=== PATIENT | female | born 1965 | race Caucasian/White ===

== ENCOUNTER 2020-05-28 16:23 | Emergency (ER) | payer OTHER, SELFPAY ==
[2020-05-28 16:38] LABS: Apearance,Urine Clear (Clear); Color,Urine Orange (Yellow)
[2020-05-28 16:39] LABS: Specific Gravity, Urine >= 1.030 (1.005-1.030)
[2020-05-28 16:41] LABS: Glucose,Urine (UA) 1+ (Negative); Ketones,Urine Negative (Negative); Protein,Urine 2+ (Negative)
[2020-05-28 16:42] LABS: Bilirubin,Urine Negative (Negative); Blood, Urine 2+ (Negative); UTC Leukocyte Esterase,Urine 3+ (Negative); Urobilinogen,Urine 1 EU/dl (0.2)
[2020-05-28 16:43] LABS: UTC Nitrate,Urine Positive (Negative)
[2020-05-28 16:45] VITALS: BP 147/97; PULSE 96; RESP 14; TEMP 36.8; O2SAT 97; BMI 18.6
--- NOTE | 2020-05-28 17:01 | HMH.EDUTC ---
[facility] [place] Clinical Impression: UTI (urinary tract infection) Qualifiers: Urinary tract infection type: site unspecified Hematuria presence: with hematuria Qualified Code(s): N39.0 - Urinary tract infection, site not specified Disposition: Home, Self-Care Condition on Discharge: Good Instructions: Urinary Tract Infection, DI for Urinary Tract Infection (UTI) Additional Instructions: Drink plenty of fluids. Take tylenol or ibuprofen for pain or fever. Take the medications as directed. Follow up with your regular doctor. GO TO THE ER FOR ANY WORSENING SYMPTOMS The pyridium will make your urine turn orange, this is an expected side effect. It will stain your clothes if it comes into contact with them. Prescriptions: Ondansetron [Zofran 4mg ODT] 4 mg PO Q8HP PRN #10 tab.rapdis PRN Reason: Nausea [facility] Status: [facility] Sulfamethoxazole/Trimethoprim [Bactrim DS tablet] 1 each PO BID 7 Days #14 tab Transmission Status: Received by [facility] Phenazopyridine HCl [Pyridium 200mg Tablet] 200 pow PO TID #6 tab Transmission Status: [facility] Referrals: Iris Guerra [Primary Care Provider] - Time of Disposition: 17:03 Medical Decision Making - Medical Records Medical records reviewed: No: I reviewed the patient's medical records. - Kenny Inquiry Pt receiving controlled substance: No Vital Signs: 05/28/20 16:45 05/28/20 17:07 Temperature 98.3 F 98.3 F Temperature Source Oral Pulse Rate 96 H Pulse Rate [Right Brachial] 96 H Respiratory Rate 14 14 Blood Pressure 147/97 H Blood Pressure [Right Arm] 147/97 H Blood Pressure Mean [Right Arm] 113 Blood Pressure Source [Right Arm] Automatic Cuff Blood Pressure Position [Right Arm] Sitting 02 Sat by Pulse Oximetry 97 Oxygen Delivery Method Room Air - Lab Data Lab results reviewed: Yes: I reviewed the patient's lab results. Lab Results 05/28/20 16:37: Urine Color [place], Urine Appearance Clear, Urine pH 5.0, Ur Specific [place] >= 1.030, Urine Protein 2+, Urine Glucose (UA) 1+, Urine Ketones Negative, Urine Blood 2+, Urine Nitrate Positive A, Urine Bilirubin Negative, Urine Urobilinogen 1, Ur Leukocyte Esterase 3+ A [facility] [place] - General Stated complaint: Poss UTI Time Seen by Provider: 05/28/20 17:01 Mode of Arrival: Ambulatory Source of Information: Patient Limitations: No Limitations Description of Symptoms (Recalled from Triage Doc. by RN): PATIENT C/O BURNING WITH URINATION, URINARY FREQUENCY, AND LOWER BACK PAIN SINCE TUESDAY HEENT Symptoms (Recalled from RN notes): No Resp Symptoms (Recalled from RN notes): No Skin Symptoms (Recalled from RN notes): No MS Symptoms (Recalled from RN notes): No Functional Status (Recalled from RN notes): WNL - History of Present Illness Provider Complaint: She c/o low back pain and urinary frequency for the past 3 days. - Related Data Home Medications Medication Instructions Recorded Confirmed Atorvastatin Calcium [Atorvastatin 10 mg PO HS 08/13/19 05/28/20 10mg Tab] Aspirin [Aspirin 81mg chewable 81 mg PO DAILY 05/28/20 05/28/20 tab] Previous Rx's Medication Instructions Recorded Ondansetron [Zofran 4mg ODT] 4 mg PO Q8HP PRN #10 tab.rapdis 05/28/20 Phenazopyridine HCl [Pyridium 200 pow PO TID #6 tab 05/28/20 200mg Tablet] Sulfamethoxazole/Trimethoprim 1 each PO BID 7 Days #14 tab 05/28/20 [Bactrim DS tablet] Allergies Allergy/AdvReac Type Severity Reaction Status Date / Time Penicillins Allergy Verified 05/28/20 16:49 - Worker's Comp Is this a Worker's Comp case?: No [facility] History - Hepatitis A Screen Drug use history?: No High risk sexual behaviors?: No History of sexually transmitted infection?: No Currently employed?: No Childcare worker?: No Do you have indoor plumbing?: Yes Do you have electricity?: Yes Attestation statement:: This patient huerta
[2020-05-28 17:07] VITALS: BP 147/97; PULSE 96; RESP 14; TEMP 36.8; O2SAT 97
== END 2020-05-28 17:14 | disposition home or self-care (01) ==
PROVIDERS: Emergency Provider Nurse Practitioner Family; PCP Physician Assistant
DX: N30.00 Acute cystitis without hematuria (principal); I10 Essential (primary) hypertension; E78.5 Hyperlipidemia, unspecified; F17.210 Nicotine dependence, cigarettes, uncomplicated; Z88.0 Allergy status to penicillin
CPT/HCPCS: 81003; 99201

== ENCOUNTER 2020-09-21 11:25 | Emergency (ER) | payer OTHER, SELFPAY ==
[2020-09-21 11:30] VITALS: BP 148/93; PULSE 75; RESP 21; TEMP 36.7; O2SAT 98; BMI 20.1
--- NOTE | 2020-09-21 11:49 | HMH.EDUTC ---
[facility] [place] Disposition Clinical Impression: Sinusitis Qualifiers: Sinusitis location: unspecified location Chronicity: unspecified Qualified Code(s): J32.9 - Chronic sinusitis, unspecified Acute bronchitis Qualifiers: Bronchitis organism: unspecified organism Qualified Code(s): J20.9 - Acute bronchitis, unspecified Disposition: Home, Self-Care Condition on Discharge: Good Instructions: Sinusitis, Acute Bronchitis, DI for Sinusitis, Methylprednisolone, Azithromycin Additional Instructions: ? Start antibiotic today. Be sure to complete entire prescription even if feeling better ? Monitor temp. Tylenol every 4 hours as needed and / or ibuprofen every 6 hours as needed ( As long as your primary care physician has told you that it ok to take both. For fever/aches/pains ER if no less than 101 despite Tylenol or Motrin ? Humidifier/vaporizer or hot steamy shower ? Inhaler every 4-6 hours as needed like we discussed. If unsure how to use it, ask pharmacist to demonstrate how. Should help open airways and improve cough, wheezing, and shortness of breath ? Mucinex during the day for your cough and cough suppressant only at night. Be sure to drink lots of water. Insurance may not cover a prescriptions for mucinex. Might be cheaper to get 400mg tablets and take 2 tablet in the morning, mid-day and evening with lots of water. Start steroid today. Helps with inflammation therefore, cough and wheezing. Follow directions on the package. Reviewed side effects. Patient reports taking them before. Follow up IMMEDIATELY for new or worsening of symptoms OR no noticeable improvement over the next 48-72 hours. 911 immediately for any life threatening symptoms such as chest pain or difficulty breathing Prescriptions: methylPREDNISolone [Medrol 4mg tab] 4 mg PO DIRECTED #21 tab [facility]: [facility] Azithromycin [Z-Duglas 250mg Tab] 250 mg PO DIRECTED #6 tab Transmission Status: Pending to [facility] Referrals: Iris Guerra [Primary Care Provider] - As needed Time of Disposition: 12:00 Medical Decision Making - Kenny Inquiry Pt receiving controlled substance: No Kenny was queried for this patient: No Vital Signs: 09/21/20 11:30 Temperature 98.0 F Temperature Source Oral Pulse Rate [Right Brachial] 75 Respiratory Rate 21 Blood Pressure [Left Arm] 148/93 H Blood Pressure Mean [Left Arm] 111 Blood Pressure Source [Left Arm] Automatic Cuff Blood Pressure Position [Left Arm] Sitting 02 Sat by Pulse Oximetry 98 Oxygen Delivery Method Room Air Orders (Tests/Meds): ORDERS Category Date Time Status Covid-19 Nasal PCR ([facility]) Routine Lab 09/21/20 11:42 Ordered Medical Decision Narrative: Patient states that she has taken azithromycin and Medrol before without complications or reactions [facility] [place] HPI - General Stated complaint: POSSIBLE BRONCHITIS Time Seen by Provider: 09/21/20 11:50 Mode of Arrival: Wheelchair Source of Information: Patient Limitations: No Limitations Description of Symptoms (Recalled from Triage Doc. by RN): PATIENT C/O DRY COUGH, BODY ACHES, AND CHILLS SINCE YESTERDAY. REPORTS SHE WAS RECENTLY EXPOSED TO COVID HEENT Symptoms (Recalled from RN notes): No Resp Symptoms (Recalled from RN notes): No Skin Symptoms (Recalled from RN notes): No MS Symptoms (Recalled from RN notes): No Functional Status (Recalled from RN notes): WNL - History of Present Illness Provider Complaint: Patient states that she has been having sinus issues on and off for over a week and was around her brother last week that tested positive for COVID States that for the the last couple of days she is still having sinus drainage and feels like it is moving into her chest States that she is a smoker and gets bronchitis frequently States that she has had dry cough, body aches and headache - Related Data Home Medications Medication Instructions Recorded Confirmed Atorvastatin Calcium [Atorvas
[2020-09-21 12:04] VITALS: BP 148/93; PULSE 75; RESP 21; TEMP 36.7; O2SAT 98
== END 2020-09-21 12:08 | disposition home or self-care (01) ==
PROVIDERS: Emergency Provider Nurse Practitioner; PCP Physician Assistant
DX: Z20.822 Contact with and (suspected) exposure to COVID-19 (principal); J20.9 Acute bronchitis, unspecified; J32.9 Chronic sinusitis, unspecified; F17.210 Nicotine dependence, cigarettes, uncomplicated
CPT/HCPCS: 99202; G0463; U0003

== ENCOUNTER 2020-11-29 17:12 | Emergency (ER) | payer OTHER, SELFPAY ==
[2020-11-29 17:15] VITALS: BP 128/91; PULSE 84; RESP 17; TEMP 36.9; O2SAT 98; BMI 20.1
--- NOTE | 2020-11-29 18:12 | HMH.EDUTC ---
[facility] [place] Disposition Clinical Impression: Strep throat Disposition: Home, Self-Care Condition on Discharge: Good Instructions: Strep Throat, DI for Strep Throat, Azithromycin Additional Instructions: *Monitor Temp, Over the counter Motrin or Tylenol as directed/as needed Tylenol every 4 hours and Motrin every 6 hours (as long as your family doctor has told you that you can take it) for fever or pain. and straight to ER if unable to lower temp less than 101.0 after medication given *Warm salt water gargles may help to soothe the throat *Throat Lozenges *Warm fluids like tea with honey may help to soothe the throat *Sleep elevated *Humidifier/Vaporizer *If you did not take Penicillin shot or was unable to, start taking antibiotic immediately and make sure that you take it for the FULL length of time although you should start to feel better in 24-48 hours *change toothbrush and toothpaste 24-48 hours after starting to take antibiotics so you do not reinfect yourself Monitor Temp. Tylenol and/or Ibuprofen as needed. ER if fever is no less than 101 despite alternating Tylenol and Ibuprofen * Encourage fluids, water, Gatorade, powerade, pedialyte if /toddler/or child *Cold fluids, popsicles and ice cream may feel good on his throat Follow up IMMEDIATELY for new or worsening symptoms or no Noticeable improvement over the next 48-72 hours. 911 for difficulty breathing or swallowing Prescriptions: Azithromycin [Z-Duglas 250mg Tab] 250 mg PO DIRECTED #6 tab Transmission Status: Pending to [facility] Referrals: Iris Guerra [Primary Care Provider] - As needed Time of Disposition: 18:15 Medical Decision Making - Kenny Inquiry Pt receiving controlled substance: No Kenny was queried for this patient: No Vital Signs: 11/29/20 17:15 Temperature 98.4 F Temperature Source Oral Pulse Rate [Right Brachial] 84 Respiratory Rate 17 Blood Pressure [Right Arm] 128/91 H Blood Pressure Mean [Right Arm] 103 Blood Pressure Source [Right Arm] Automatic Cuff Blood Pressure Position [Right Arm] Sitting 02 Sat by Pulse Oximetry 98 Oxygen Delivery Method Room Air - Lab Data Lab results reviewed: Yes: I reviewed the patient's lab results. Medical Decision Narrative: Patient states that she has taken Azithromycin before without complications or reactions [facility] [place] HPI - General Stated complaint: L ear pain pain when swallowing Time Seen by Provider: 11/29/20 17:30 Mode of Arrival: Ambulatory Source of Information: Patient Limitations: No Limitations Description of Symptoms (Recalled from Triage Doc. by RN): PATIENT C/O LEFT EAR AND NECK PAIN AND THROAT PAIN WHEN SWALLOWING X 2 DAYS HEENT Symptoms (Recalled from RN notes): Yes Resp Symptoms (Recalled from RN notes): No Skin Symptoms (Recalled from RN notes): No MS Symptoms (Recalled from RN notes): No Functional Status (Recalled from RN notes): WNL - History of Present Illness Provider Complaint: Patient states that she has been having pain in her left ear for several days and has pain extending down from ear into neck and throat States that her throat feels scratchy and hurts when she swallows State that today she was still having sore throat so she came in to get checked - Related Data Home Medications Medication Instructions Recorded Confirmed Atorvastatin Calcium [Atorvastatin 10 mg PO HS 08/13/19 11/29/20 10mg Tab] Aspirin [Aspirin 81mg chewable 81 mg PO DAILY 05/28/20 11/29/20 tab] Montelukast Sodium [Singulair 10mg 10 mg PO PM 09/21/20 11/29/20 tablet] Omeprazole [Omeprazole 20mg 20 mg PO DAILY 09/21/20 11/29/20 Capsule] Previous Rx's Medication Instructions Recorded Azithromycin [Z-Duglas 250mg Tab] 250 mg PO DIRECTED #6 tab 11/29/20 Allergies Allergy/AdvReac Type Severity Reaction Status Date / Time Penicillins Allergy Verified 05/28/20 16:49 - Worker's Comp Is this a Worker's Comp case?: No
[2020-11-29 18:15] VITALS: BP 128/91; PULSE 84; RESP 17; TEMP 36.9; O2SAT 98
[2020-11-29 18:29] LABS: UTC Strep Screen (Rapid) Positive (Negative)
== END 2020-11-29 18:24 | disposition home or self-care (01) ==
PROVIDERS: Emergency Provider Nurse Practitioner; PCP Physician Assistant
DX: J02.0 Streptococcal pharyngitis (principal); F17.210 Nicotine dependence, cigarettes, uncomplicated
CPT/HCPCS: 87880; 99202; G0463

== ENCOUNTER 2021-06-26 10:33 | Emergency (ER) | payer OTHER, SELFPAY ==
[2021-06-26 11:40] VITALS: BP 142/99; PULSE 91; RESP 20; TEMP 36.9; O2SAT 97; BMI 18.6
--- NOTE | 2021-06-26 12:37 | HMH.EDUTC ---
[facility] [place] Impression: Acute bronchitis Qualifiers: Bronchitis organism: unspecified organism Qualified Code(s): J20.9 - Acute bronchitis, unspecified Disposition: Home, Self-Care Condition on Discharge: Good Instructions: Acute Bronchitis, DI for Acute Bronchitis Additional Instructions: Drink plenty of fluids. Take tylenol or ibuprofen for pain or fever. Take the medications as directed. Follow up with your regular doctor. GO TO THE ER FOR ANY WORSENING SYMPTOMS Quarantine until you know the results of your covid-19 test. If it is positive, the health department should call you and give you further instructions about your length of Quarantine and other things. Notify your school or workplace of your results and follow their instructions regarding return to work/school. The cough medication (promethazine dm) will make you drowsy, so don't drive or operate heavy machinery after taking it. Prescriptions: Promethazine/Dextromethorphan [Promethazine-Dm Syrup] 5 ml PO Q6HP PRN #240 ml PRN Reason: Cough Transmission Status: Received by [id number] methylPREDNISolone [Medrol] 4 mg PO DIRECTED 6 Days #21 packet Transmission Status: Received by [id number] guaiFENesin [Mucinex 600mg tablet] 1 - 2 tab PO BIDP PRN #30 tab PRN Reason: Congestion Transmission Status: Received by [id number] Azithromycin [Z-Duglas 250mg Tab*] 250 mg PO UD DOSE PK #6 tab Transmission Status: Received by [id number] Referrals: Shaquille Russell [Primary Care Provider] - Time of Disposition: 12:41 Medical Decision Making - Medical Records Medical records reviewed: No: I reviewed the patient's medical records. - Kenny Inquiry Pt receiving controlled substance: No Vital Signs: 06/26/21 11:40 06/26/21 12:44 Temperature 98.4 F 98.4 F Temperature Source Oral Pulse Rate 91 H Pulse Rate [Right Brachial] 91 H Respiratory Rate 20 20 Blood Pressure 142/99 H Blood Pressure [Right Arm] 142/99 H Blood Pressure Mean [Right Arm] 113 Blood Pressure Source [Right Arm] Automatic Cuff Blood Pressure Position [Right Arm] Sitting 02 Sat by Pulse Oximetry 97 Oxygen Delivery Method Room Air - Lab Data Lab results reviewed: Yes: I reviewed the patient's lab results. Orders (Tests/Meds): ORDERS Category Date Time Status Covid-19 Nasal PCR ([facility]) Routine Lab 06/26/21 12:35 Received [facility] [place] - General Stated complaint: bronchitis Time Seen by Provider: 06/26/21 11:45 Mode of Arrival: Ambulatory Source of Information: Patient Limitations: No Limitations Description of Symptoms (Recalled from Triage Doc. by RN): PATIENT C/O COUGH, CHEST CONGESTION, CHILLS AND BODY ACHES SINCE TUESDAY HEENT Symptoms (Recalled from RN notes): Yes Resp Symptoms (Recalled from RN notes): Yes Skin Symptoms (Recalled from RN notes): No MS Symptoms (Recalled from RN notes): Yes Functional Status (Recalled from RN notes): WNL - History of Present Illness Provider Complaint: She has had a cough, chest congestion, body aches and fever for the past 2 days. - Related Data Home Medications Medication Instructions Recorded Confirmed Atorvastatin Calcium [Atorvastatin 10 mg PO HS 08/13/19 06/26/21 10mg Tab] Previous Rx's Medication Instructions Recorded Azithromycin [Z-Duglas 250mg Tab*] 250 mg PO UD DOSE PK #6 tab 06/26/21 Promethazine/Dextromethorphan 5 ml PO Q6HP PRN #240 ml 06/26/21 [Promethazine-Dm Syrup] guaiFENesin [Mucinex 600mg tablet] 1 - 2 tab PO BIDP PRN #30 tab 06/26/21 methylPREDNISolone [Medrol] 4 mg PO DIRECTED 6 Days #21 06/26/21 packet Allergies Allergy/AdvReac Type Severity Reaction Status Date / Time Penicillins Allergy Verified 05/28/20 16:49 - Worker's Comp Is this a Worker's Comp case?: No [facility] History - Hepatitis A Screen Drug use history?: No High risk sexual behaviors?: No History of sexually transmitted infection?: N
[2021-06-26 12:44] VITALS: BP 142/99; PULSE 91; RESP 20; TEMP 36.9; O2SAT 97
== END 2021-06-26 12:51 | disposition home or self-care (01) ==
PROVIDERS: Emergency Provider Nurse Practitioner Family; PCP Family Medicine
DX: J20.9 Acute bronchitis, unspecified (principal); F17.210 Nicotine dependence, cigarettes, uncomplicated
CPT/HCPCS: 99202; C9803; G0463; U0003; U0005

== ENCOUNTER 2021-11-07 11:38 | Emergency (ER) | payer OTHER, SELFPAY ==
[2021-11-07 12:54] VITALS: BP 139/86; PULSE 83; RESP 18; TEMP 36.6; O2SAT 98; BMI 18.6
--- NOTE | 2021-11-07 12:55 | HMH.EDUTC ---
[facility] [place]: Sinusitis Qualifiers: Sinusitis location: unspecified location Chronicity: acute Recurrence: non-recurrent Qualified Code(s): J01.90 - Acute sinusitis, unspecified Acute bronchitis Qualifiers: Bronchitis organism: unspecified organism Qualified Code(s): J20.9 - Acute bronchitis, unspecified Disposition: Home, Self-Care Condition on Discharge: Good Instructions: DI for Sinusitis, DI for Acute Bronchitis Additional Instructions: Drink plenty of fluids. Take tylenol or ibuprofen for pain or fever. Take the medications as directed. Follow up with your regular doctor. GO TO THE ER FOR ANY WORSENING SYMPTOMS The cough medication (promethazine dm) will make you drowsy, so don't drive or operate heavy machinery after taking it. Prescriptions: Promethazine/Dextromethorphan [Promethazine-Dm Syrup] 5 ml PO Q6HP PRN #240 ml PRN Reason: Cough Transmission Status: [id number] methylPREDNISolone [Medrol] 4 mg PO DIRECTED 6 Days #21 packet Transmission Status: Received by [id number] guaiFENesin [Mucinex 600mg tablet] 1 - 2 tab PO BIDP PRN #30 tab PRN Reason: Congestion Transmission Status: Received by [id number] Azithromycin [Z-Duglas 250mg Tab*] 250 mg PO UD DOSE PK #6 tab Transmission Status: Received by [id number] Referrals: Ethel Vazquez APRN [Primary Care Provider] - Forms: Work/School Release Time of Disposition: 13:19 Medical Decision Making - Medical Records Medical records reviewed: No: I reviewed the patient's medical records. - Kenny Inquiry Pt receiving controlled substance: No Vital Signs: 11/07/21 12:54 11/07/21 13:26 Temperature 98 F 98 F Temperature Source Oral Pulse Rate 83 Pulse Rate [Left] 83 Respiratory Rate 18 18 Blood Pressure 139/86 Blood Pressure [Right Arm] 139/86 Blood Pressure Mean [Right Arm] 103 02 Sat by Pulse Oximetry 98 - Lab Data Lab results reviewed: Yes: I reviewed the patient's lab results. [facility] [place] - General Stated complaint: cough, congestion, ACSTRO, chills Time Seen by Provider: 11/07/21 12:55 - History of Present Illness Provider Complaint: She states that for the past 2 days she has had worsening sinus congestion and sore throat. She denies fever/chills. - Related Data Home Medications Medication Instructions Recorded Confirmed Atorvastatin Calcium [Atorvastatin 10 mg PO HS 08/13/19 06/26/21 10mg Tab] Previous Rx's Medication Instructions Recorded Azithromycin [Z-Duglas 250mg Tab*] 250 mg PO UD DOSE PK #6 tab 06/26/21 Promethazine/Dextromethorphan 5 ml PO Q6HP PRN #240 ml 06/26/21 [Promethazine-Dm Syrup] guaiFENesin [Mucinex 600mg tablet] 1 - 2 tab PO BIDP PRN #30 tab 06/26/21 methylPREDNISolone [Medrol] 4 mg PO DIRECTED 6 Days #21 06/26/21 packet Azithromycin [Z-Duglas 250mg Tab*] 250 mg PO UD DOSE PK #6 tab 11/07/21 Promethazine/Dextromethorphan 5 ml PO Q6HP PRN #240 ml 11/07/21 [Promethazine-Dm Syrup] guaiFENesin [Mucinex 600mg tablet] 1 - 2 tab PO BIDP PRN #30 tab 11/07/21 methylPREDNISolone [Medrol] 4 mg PO DIRECTED 6 Days #21 11/07/21 packet Allergies Allergy/AdvReac Type Severity Reaction Status Date / Time Penicillins Allergy Verified 05/28/20 16:49 [facility] History - Hepatitis A Screen Attestation statement:: This patient has been screened for Hepatitis A risk factors. I have reviewed the patient's past medical history: Yes - Social History Smoking Status: Current every day smoker Tobacco Type: cigarettes # Packs/Day (cigarettes): 1 Alcohol Intake: never Occupational Status: other ROS Obtained: Yes All systems reviewed & no additional complaints - Constitutional Constitutional: Reports as per HPI - Eyes Eyes: Denies eye discharge - ENT Ears, Nose, Mouth, and Throat: Reports as per HPI - Cardiovascular Cardiovascular: Denies chest pain - Respiratory Respiratory: Reports chest
[2021-11-07 13:26] VITALS: BP 139/86; PULSE 83; RESP 18; TEMP 36.6
== END 2021-11-07 13:26 | disposition home or self-care (01) ==
PROVIDERS: Emergency Provider Nurse Practitioner Family; PCP Nurse Practitioner Family
DX: J01.90 Acute sinusitis, unspecified (principal); J20.9 Acute bronchitis, unspecified; J02.9 Acute pharyngitis, unspecified; F17.210 Nicotine dependence, cigarettes, uncomplicated; Z79.52 Long term (current) use of systemic steroids; Z79.899 Other long term (current) drug therapy; Z88.0 Allergy status to penicillin
CPT/HCPCS: 99213; G0463

== ENCOUNTER 2022-01-24 13:25 | Emergency (ER) | payer OTHER, SELFPAY ==
[2022-01-24 13:35] VITALS: BP 141/92; PULSE 74; RESP 19; TEMP 36.8; O2SAT 98; BMI 17.7
--- NOTE | 2022-01-24 14:01 | HMH.EDUTC ---
[facility] [place] Disposition Clinical Impression: Sinusitis Qualifiers: Sinusitis location: unspecified location Chronicity: unspecified Qualified Code(s): J32.9 - Chronic sinusitis, unspecified Acute bronchitis Qualifiers: Bronchitis organism: unspecified organism Qualified Code(s): J20.9 - Acute bronchitis, unspecified Disposition: Home, Self-Care Condition on Discharge: Good Instructions: Sinusitis, DI for Sinusitis, DI for Acute Bronchitis Additional Instructions: ? Start antibiotic today. Be sure to complete entire prescription even if feeling better ? Monitor temp. Tylenol every 4 hours as needed and / or ibuprofen every 6 hours as needed ( As long as your primary care physician has told you that it ok to take both. For fever/aches/pains ER if no less than 101 despite Tylenol or Motrin ? Humidifier/vaporizer or hot steamy shower ? Inhaler every 4-6 hours as needed like we discussed. If unsure how to use it, ask pharmacist to demonstrate how. Should help open airways and improve cough, wheezing, and shortness of breath ? Mucinex during the day for your cough and cough suppressant only at night. Be sure to drink lots of water. Insurance may not cover a prescriptions for mucinex. Might be cheaper to get 400mg tablets and take 2 tablet in the morning, mid-day and evening with lots of water. *Promethazine DM cough syrup will cause drowsiness. Use only at night. No driving, operating machinery or caring for small children after taking it *Tessalon Perles will not cause drowsiness but use at bedtime to help stop cough so that you may get some rest. *Start steroid today. Helps with inflammation therefore, cough and wheezing. Follow directions on the package. Reviewed side effects. Patient reports taking them before. Follow up IMMEDIATELY for new or worsening of symptoms OR no noticeable improvement over the next 48-72 hours. 911 immediately for any life threatening symptoms such as chest pain or difficulty breathing Prescriptions: methylPREDNISolone [Medrol 4mg tab] 4 mg PO DIRECTED #21 tab Transmission Status: [id number] Promethazine/Dextromethorphan [Promethazine-Dm Syrup] 2.5 - 5 ml PO Q6H PRN #200 ml PRN Reason: Cough Transmission Status: [id number] Azithromycin [Z-Duglas 250mg Tab] 250 mg PO DIRECTED #6 tab Transmission Status: [id number] Referrals: Ethel Vazquez APRN [Primary Care Provider] - As needed Time of Disposition: 14:14 Medical Decision Making - Kenny Inquiry Pt receiving controlled substance: No Kenny was queried for this patient: No Vital Signs: 01/24/22 13:35 Temperature 98.2 F Temperature Source Oral Pulse Rate [Right Brachial] 74 Respiratory Rate 19 Blood Pressure [Right Arm] 141/92 H Blood Pressure Mean [Right Arm] 108 Blood Pressure Source [Right Arm] Automatic Cuff Blood Pressure Position [Right Arm] Sitting 02 Sat by Pulse Oximetry 98 Oxygen Delivery Method Room Air [facility] [place] HPI - General Stated complaint: congestion, sore throat, chills Time Seen by Provider: 01/24/22 14:01 Mode of Arrival: Ambulatory Source of Information: Patient Limitations: No Limitations Description of Symptoms (Recalled from Triage Doc. by RN): PATIENT C/O WET COUGH, SINUS PRESSURE AND DRAINAGE X 2 DAYS HEENT Symptoms (Recalled from RN notes): Yes Resp Symptoms (Recalled from RN notes): Yes Skin Symptoms (Recalled from RN notes): No MS Symptoms (Recalled from RN notes): No Functional Status (Recalled from RN notes): WNL - History of Present Illness Provider Complaint: Patient states she has been having sinus pain and pressure, drainage in the back of her throat, States that she feels like it is trying to move into her chest area and wanted to get it treated before it got too bad - Related Data Home Medications Medication Instructions Recorded Confirmed Atorvastatin Calcium [Atorvastatin 10 mg PO HS 08/13/19 01/24/22 10mg Tab] Previous
[2022-01-24 14:02] VITALS: BP 141/92; PULSE 74; RESP 19; TEMP 36.8; O2SAT 98
== END 2022-01-24 14:18 | disposition home or self-care (01) ==
PROVIDERS: Emergency Provider Nurse Practitioner; PCP Nurse Practitioner Family
DX: J32.9 Chronic sinusitis, unspecified (principal); J20.9 Acute bronchitis, unspecified; Z88.0 Allergy status to penicillin
CPT/HCPCS: 99212; G0463

== ENCOUNTER 2022-10-04 13:38 | Emergency (ER) | payer OTHER, SELFPAY ==
[2022-10-04 14:00] VITALS: BP 143/88; PULSE 85; RESP 20; TEMP 36.8; O2SAT 97; BMI 17.7
[2022-10-04 14:10] LABS: UTC Strep Screen (Rapid) Negative (Negative)
--- NOTE | 2022-10-04 14:11 | EXP.UTC ---
Discharge Plan Disposition Patient Disposition: Home, Self-Care Condition: Good Prescriptions Prescriptions: New azithromycin [Zithromax Z-Duglas] 250 mg tablet See Rx Instructions .ROUTE .COMPLEX 5 Days Qty: 6 0RF Rx Instructions: For 250 mg dose pack: take 500 mg today (day 1), then 250 mg for 4 days (days 2-5) fluticasone propionate [Flonase Allergy Relief] 50 mcg/actuation spray,suspension 1 spray intranasal DAILY Qty: 16 0RF Rx Instructions: administer into each nostril daily No Action atorvastatin 10 MG tablet 10 mg PO HS promethazine-DM 120 ML syrup 2.5 - 5 ml PO Q6H PRN (Reason: Cough) Qty: 200 0RF azithromycin 250 MG tablet 250 mg PO DIRECTED Qty: 6 0RF Rx Instructions: Take two (2) tablets on day #1, then one (1) tablet day #2 thru #5 methylprednisolone 4 MG tablet 4 mg PO DIRECTED Qty: 21 0RF Rx Instructions: Take as directed on package instructions Referrals Follow up/Referrals: Ethel Vazquez APRN [Primary Care Provider] - See instructions Activity Restrictions/Add. Instructions Additional Instructions/Restrictions: *Monitor Temp, Over the counter Motrin or Tylenol as directed/as needed Tylenol every 4 hours and Motrin every 6 hours (as long as your family doctor has told you that you can take it) for fever or pain. and straight to ER if unable to lower temp less than 101.0 after medication given *Warm salt water gargles may help to soothe the throat *Throat Lozenges? *Warm fluids like tea with honey may help to soothe the throat? *Sleep elevated *Humidifier/Vaporizer Take medication as prescribed Your throat swab was sent for culture. Those results are typically sent to your primary care. Be sure to follow up in 2-3 days with your family doctor/primary care physician if no improvement so they can review those result and treat if necessary. If you don?t have a primary care doctor, I recommend you get one but in the mean time, you will have to return to a walk in clinic Follow up IMMEDIATELY for new or worsening symptoms or no Noticeable improvement over the next 48-72 hours. 911 for difficulty breathing or swallowing Clinical Impressions Clinical Impression: Otitis media Qualifiers: Otitis media type: unspecified Laterality: left Qualified Code(s): H66.92 - Otitis media, unspecified, left ear Stand Alone Forms Stand Alone Forms: Work/School Release Instructions Patient Instructions: Sore Throat, Middle Ear Infection Discharge ED Provider: Shelia Acosta [facility] [place] HPI General Stated complaint: Left side of neck up to her ear Time Seen by Provider: 10/04/22 14:11 History of Present Illness Provider Complaint: Patient states that she has been having pain in her left ear and left side of throat that has continued to get worse States that she feels like she may have a swollen lymph node on the left side of neck States that she was still hurting so she came in to get it checked Related Data Home Medications Medication Instructions Recorded Confirmed atorvastatin 10 mg tablet 10 mg PO HS Cholesterol 08/13/19 01/24/22 albuterol sulfate 90 mcg/actuation 1 inh inhalation NEEDED PRN . 10/04/22 10/04/22 aerosol inhaler montelukast 10 mg tablet 10 mg PO DAILY . 10/04/22 10/04/22 Previous Rx's Medication Instructions Recorded azithromycin 250 mg tablet See Rx Instructions PO .COMPLEX 5 10/04/22 (Zithromax Z-Duglas) days #6 tabs fluticasone propionate 50 1 spray intranasal DAILY #16 grams 10/04/22 mcg/actuation nasal spray,suspension (Flonase Allergy Relief) Allergies Allergy/AdvReac Type Severity Reaction Status Date / Time Penicillins Allergy Verified 10/04/22 14:14 [facility] Disclaimer: The information contained in this section may have been updated after the patient was seen, as this information can be updated by other users. Social History Smoking Status: Current every day smoke
[2022-10-04 14:31] VITALS: BP 143/88; PULSE 85; RESP 20; TEMP 36.8; O2SAT 97
== END 2022-10-04 14:29 | disposition home or self-care (01) ==
PROVIDERS: Emergency Provider Nurse Practitioner; PCP Nurse Practitioner Family
DX: H66.92 Otitis media, unspecified, left ear (principal); R07.0 Pain in throat; F17.210 Nicotine dependence, cigarettes, uncomplicated
CPT/HCPCS: 87880; 99212; 99214; G0463

== ENCOUNTER 2022-12-27 10:14 | Emergency (ER) | payer OTHER, SELFPAY ==
--- NOTE | 2022-12-27 11:08 | EXP.UTC ---
Discharge Plan Disposition Patient Disposition: Home, Self-Care Condition: Good Prescriptions Prescriptions: New azithromycin [Zithromax] 250 mg tablet 250 mg PO UD DOSE PK Qty: 6 0RF Rx Instructions: Take two (2) tablets today, then one (1) tablet days #2 thru #5 benzonatate [benzonatate] 100 mg capsule 100 mg PO TIDP PRN (Reason: Cough) Qty: 30 0RF methylprednisolone 4 mg Tablets,Dose Pack 4 mg PO DIRECTED Qty: 21 0RF No Action atorvastatin 10 MG tablet 10 mg PO HS Referrals Follow up/Referrals: Ethel Vazquez APRN [Primary Care Provider] - See instructions Activity Restrictions/Add. Instructions Additional Instructions/Restrictions: Drink plenty of fluids. Take tylenol for pain or fever. Take the medications as directed. Follow up with your regular doctor. GO TO THE ER FOR ANY WORSENING SYMPTOMS Clinical Impressions Clinical Impression: Sinusitis Instructions Patient Instructions: Sinusitis, DI for Sinusitis Discharge ED Provider: Memo Shay [facility] General Stated complaint: CASTRO, congestion Time Seen by Provider: 12/27/22 11:08 History of Present Illness Provider Complaint: She states that for the past 3 days she has had sinus congestion, left ear pain and malaise. Related Data Home Medications Medication Instructions Recorded Confirmed atorvastatin 10 mg tablet 10 mg PO HS Cholesterol 08/13/19 12/27/22 Previous Rx's Medication Instructions Recorded azithromycin 250 mg tablet 250 mg PO UD DOSE PK #6 tabs 12/27/22 (Zithromax) benzonatate 100 mg capsule 100 mg PO TIDP PRN Cough #30 caps 12/27/22 methylprednisolone 4 mg tablets in 4 mg PO DIRECTED #21 tabs 12/27/22 a dose pack Allergies Allergy/AdvReac Type Severity Reaction Status Date / Time Penicillins Allergy Verified 12/27/22 11:27 [facility] Disclaimer: The information contained in this section may have been updated after the patient was seen, as this information can be updated by other users. Medical History Anxiety Depression GERD (gastroesophageal reflux disease) Urinary tract infection Surgical History H/O tubal ligation History of cholecystectomy Social History Smoking Status: Current every day smoker tobacco type: cigarettes packs per day: 1 alcohol intake: never current occupational status: other Travel in the last 8 weeks: None ROS Obtained: Yes All systems reviewed & no additional complaints except as documented Constitutional Constitutional: Reports poor appetite Eyes Eyes: Reports system reviewed and no additional complaints, except as documented ENT Ears, Nose, Mouth, and Throat: Reports as per HPI Cardiovascular Cardiovascular: Reports system reviewed and no additional complaints, except as documented and Denies chest pain Respiratory Respiratory: Denies shortness of breath, Denies chest congestion, Reports cough, Denies stridor and Denies wheezing Gastrointestinal Gastrointestingal: Reports system reviewed and no additional complaints, except as documented; Denies abdominal pain, diarrhea or vomiting Musculoskeletal Musculoskeletal: Reports system reviewed and no additional complaints, except as documented and Denies arthralgias Integumentary/Breasts Skin/Breast: Reports system reviewed and no additional complaints, except as documented and Denies rash Neurologic Neurologic: Denies paresthesias Allergic/Immunologic Allergic/Immunologic: Denies wheezing Physical Exam General General appearance: alert and in no apparent distress Head Head exam: atraumatic, normocephalic and normal inspection Eye Eye exam: Present normal appearance, PERRL and EOMI ENT ENT exam: Present normal exam, normal oropharynx, mucous membranes moist, TM's normal bilaterally and normal external ear exam Neck
[2022-12-27 11:24] VITALS: BP 152/100; PULSE 73; RESP 16; TEMP 36.5; O2SAT 98; BMI 18.3
[2022-12-27 11:41] VITALS: BP 146/94; PULSE 73; RESP 18; TEMP 36.5; O2SAT 98
== END 2022-12-27 11:45 | disposition home or self-care (01) ==
PROVIDERS: Emergency Provider Nurse Practitioner Family; PCP Nurse Practitioner Family
DX: J01.90 Acute sinusitis, unspecified (principal); F17.210 Nicotine dependence, cigarettes, uncomplicated; K21.9 Gastro-esophageal reflux disease without esophagitis; F41.9 Anxiety disorder, unspecified; F32.9 Major depressive disorder, single episode, unspecified
CPT/HCPCS: 99212; 99214; G0463

== ENCOUNTER 2023-07-29 16:50 | Emergency (ER) | payer OTHER, SELFPAY ==
--- NOTE | 2023-07-29 17:59 | EXP.UTC ---
Discharge Plan Disposition Patient Disposition: Home, Self-Care Condition: Good Prescriptions Prescriptions: New azithromycin [Zithromax] 250 mg tablet 250 mg PO UD DOSE PK Qty: 6 0RF Rx Instructions: Take two (2) tablets today, then one (1) tablet days #2 thru #5 benzonatate [benzonatate] 100 mg capsule 100 mg PO TIDP PRN (Reason: Cough) Qty: 30 0RF methylprednisolone 4 mg Tablets,Dose Pack 4 mg PO DIRECTED 6 Days Qty: 21 0RF Rx Instructions: Take 1 pack as directed for 6 days No Action atorvastatin 10 MG tablet 10 mg PO HS Referrals Follow up/Referrals: Ethel Vazquez APRN [Primary Care Provider] - See instructions Activity Restrictions/Add. Instructions Additional Instructions/Restrictions: Drink plenty of fluids. Take tylenol or ibuprofen for pain or fever. Take the medications as directed. Follow up with your regular doctor. GO TO THE ER FOR ANY WORSENING SYMPTOMS Clinical Impressions Clinical Impression: Sinusitis Instructions Patient Instructions: Sinusitis, DI for Sinusitis Discharge ED Provider: Memo Shay [facility] General Stated complaint: sinus pressure, h/a Time Seen by Provider: 07/29/23 17:59 History of Present Illness Provider Complaint: She states that for the past 4 days she has had sinus congestion, sinus pressure, and ear pain. She denies any fever/chills. Related Data Home Medications Medication Instructions Recorded Confirmed atorvastatin 10 mg tablet 10 mg PO HS Cholesterol 08/13/19 07/29/23 Previous Rx's Medication Instructions Recorded azithromycin 250 mg tablet 250 mg PO UD DOSE PK #6 tabs 07/29/23 (Zithromax) benzonatate 100 mg capsule 100 mg PO TIDP PRN Cough #30 caps 07/29/23 methylprednisolone 4 mg tablets in 4 mg PO DIRECTED 6 days #21 tabs 07/29/23 a dose pack Allergies Allergy/AdvReac Type Severity Reaction Status Date / Time Penicillins Allergy Verified 12/27/22 11:27 [facility] Disclaimer: The information contained in this section may have been updated after the patient was seen, as this information can be updated by other users. Medical History Anxiety Depression GERD (gastroesophageal reflux disease) Urinary tract infection Surgical History H/O tubal ligation History of cholecystectomy Social History Smoking Status: Current every day smoker tobacco type: cigarettes packs per day: 1 alcohol intake: never current occupational status: other Travel in the last 8 weeks: None ROS Obtained: Yes All systems reviewed & no additional complaints except as documented Constitutional Constitutional: Reports poor appetite Eyes Eyes: Reports system reviewed and no additional complaints, except as documented ENT Ears, Nose, Mouth, and Throat: Reports as per HPI Cardiovascular Cardiovascular: Reports system reviewed and no additional complaints, except as documented and Denies chest pain Respiratory Respiratory: Denies shortness of breath, Denies chest congestion, Reports cough, Denies stridor and Denies wheezing Gastrointestinal Gastrointestingal: Reports system reviewed and no additional complaints, except as documented; Denies abdominal pain, diarrhea or vomiting Musculoskeletal Musculoskeletal: Reports system reviewed and no additional complaints, except as documented and Denies arthralgias Integumentary/Breasts Skin/Breast: Reports system reviewed and no additional complaints, except as documented and Denies rash Neurologic Neurologic: Denies paresthesias Allergic/Immunologic Allergic/Immunologic: Denies wheezing Physical Exam General General appearance: alert and in no apparent distress Eye Eye exam: Present normal appearance, PERRL and EOMI ENT ENT exam: Present mucous membranes moist and normal external ear exam Expanded ENT Exam External ear exam: Present normal external inspection TM/Canal exam: Bilateral TM: erythema and bulging Nose exam: Absent sinus tenderness Nasal speculum exam: Bilateral: normal Mouth exam: Present normal external inspection; Absent drooling Teeth exam: Present normal inspection Throat exam: Present tonsillar erythema and tonsillomegaly Neck Neck exam: Present normal inspection, full ROM and trachea midline; Absent tenderness, lymphadenopathy or thyromegaly Chest Chest inspection: Present normal inspection and symmetric chest wall rise; Absent tenderness or rash Respiratory Respiratory exam: Present normal lung sounds bilaterally; Absent respiratory distress, wheezes, stridor or accessory muscle use Cardiovascular Cardiovascular exam: Present regular rate, normal rhythm and normal heart sounds Abdominal Exam Abdominal exam: Present soft; Absent distention, tenderness, guarding, rebound or rigidity Extremities Exam Extremities exam: Present normal inspection, full ROM and normal capillary refill; Absent tenderness or calf tenderness Back Exam Back exam: Present normal inspection and full ROM; Absent tenderness Neurological Exam Neurological exam: Present alert and oriented X3 Psychiatric Psychiatric exam: Present normal affect and normal mood Skin Skin exam: Present warm, dry, intact and normal color Lymphatic Lymphatic Findings: no adenopathy Medical Decision Making Medical Records Medical records reviewed: No I reviewed the patient's medical records. Kenny Inquiry Pt receiving controlled substance: No
[2023-07-29 18:00] VITALS: BP 141/86; PULSE 75; RESP 20; TEMP 36.8; O2SAT 97; BMI 17.7
[2023-07-29 18:20] VITALS: BP 141/86; PULSE 75; RESP 20; TEMP 36.8; O2SAT 97
== END 2023-07-29 18:23 | disposition home or self-care (01) ==
PROVIDERS: Emergency Provider Nurse Practitioner Family; PCP Nurse Practitioner Family
DX: J01.90 Acute sinusitis, unspecified (principal); R51.9 Headache, unspecified; R09.81 Nasal congestion; H92.03 Otalgia, bilateral; F17.210 Nicotine dependence, cigarettes, uncomplicated
CPT/HCPCS: 99212; 99214; G0463

== ENCOUNTER 2023-09-19 10:27 | Emergency (ER) | payer OTHER, SELFPAY ==
[2023-09-19] VITALS (8 sets, daily range): BP systolic 127–165; BP diastolic 87–105; PULSE 68–86; RESP 14–19; TEMP 36.6–36.7; O2SAT 95–99; BMI 17.7
--- NOTE | 2023-09-19 10:29 | ECG_ITS ---
APPROVED REPORT Exam: Resting ECG HR:79 bpm ECG Measurements Heart Rate 79 AXES OK 128 P 68 QRSd 77 QRS 88 QT 356 T 71 QTc 391 Conclusion SINUS RHYTHM SEPTAL MYOCARDIAL INFARCTION , PROBABLY OLD [40+ ms Q WAVE IN V1/V2] ABNORMAL ECG UNCONFIRMED REPORT Electronically signed by : Arnaldo Owusu MD 09/20/2023 20:11:47
--- NOTE | 2023-09-19 10:45 | XR_ITS ---
FINAL REPORT TECHNIQUE: Chest PA & Lateral CLINICAL HISTORY: cough/congestion COMPARISON: None FINDINGS: 2 views of the chest were performed. The heart size is normal. The mediastinum is within normal limits. The lungs are hyperinflated. There is no airspace infiltrate. There are no pleural effusions. There is no pneumothorax. The bony thorax appears intact. IMPRESSION: Hyperinflated lungs without acute cardiopulmonary process. Reviewed, Interpreted and Dictated by Pete Thornton MD Transcribed by Rebecca Del Cid Authenticated and [facility]
[2023-09-19 10:52] LABS: Basophils # 0.1 K/mm3 (0-0.2); Basophils % 0.7 % (0.1-2.0); Eosinophils # 0.1 K/mm3 (0.0-0.4); Eosinophils % 1.2 % (0.1-12.0); Hematocrit 49.1 % (37.0-47.0); Hemoglobin 16.4 g/dL (12.2-16.2); Lymphocytes # 2.9 K/mm3 (0.7-4.5); Lymphocytes % 39.5 % (10-50); Mean Corpuscular HGB Conc 33.4 g/dL (31.8-35.4); Mean Corpuscular Hemoglobin 32.5 pg (27.0-31.2); Mean Corpuscular Volume 97.4 fl (81-99); Mean Platelet Volume 7.8 fl (7.4-10.4); Monocytes # 0.5 K/mm3 (0.1-1.0); Monocytes % 7.1 % (1.7-9.3); Neutrophils # 3.8 K/mm3 (1.8-7.8); Neutrophils % 51.4 % (37.0-80.0); Platelet Count 366 K/mm3 (142-424); Red Blood Count 5.04 M/mm3 (4.20-5.40); Red Cell Distribution Width 13.3 % (11.5-17.5); White Blood Count 7.4 K/mm3 (4.8-10.8)
--- NOTE | 2023-09-19 10:52 | PC.NURSE ---
Dr. Royal at [facility] for pt eval
--- NOTE | 2023-09-19 10:58 | ED_ITS ---
Discharge Plan Disposition Patient Disposition: Home, Self-Care Condition: Good Prescriptions Prescriptions: No Action azithromycin [Zithromax] 250 mg tablet 250 mg PO UD DOSE PK Qty: 6 0RF Rx Instructions: Take two (2) tablets today, then one (1) tablet days #2 thru #5 benzonatate [benzonatate] 100 mg capsule 100 mg PO TIDP PRN (Reason: Cough) Qty: 30 0RF methylprednisolone 4 mg Tablets,Dose Pack 4 mg PO DIRECTED 6 Days Qty: 21 0RF Rx Instructions: Take 1 pack as directed for 6 days atorvastatin 10 MG tablet 10 mg PO HS Referrals Follow up/Referrals: Provider,Referral, MD [Primary Care Provider] - See instructions Activity Restrictions/Add. Instructions Additional Instructions/Restrictions: You have been evaluated in the ED for your complaints. I provided you with information in regards to a new primary care provider to establish care. Please call to schedule appointment over the next week for reassessment. If you experience any new or worsening symptoms please return to ED for further evaluation. Clinical Impressions Clinical Impression: Chest pain, Shortness of breath, Hypertension Stand Alone Forms Stand Alone Forms: Work/School Release Instructions Patient Instructions: DI for Atypical Chest Pain, DI for Shortness of Breath Discharge ED Provider: Emeterio Royal General Adult HPI General Chief complaint: Shortness of Breath/Dyspnea Stated complaint: Chest Pain Time Seen by Provider: 09/19/23 10:51 Mode of Arrival: Ambulatory Source of Information: Patient Limitations: No Limitations Description of Symptoms (Recalled from ER Triage Doc. by RN): Patient reports high blood pressure, shortness of breath, cough and congestion. Patient denies chest pain. History of Present Illness HPI narrative: 58-year-old female with past medical history significant for anxiety, depression, GERD, HLD, presents today for evaluation concerning high blood pressure readings over the past 3 days. She states that on Tuesday she noted a blood pressure of 220/100. Tuesday 147/100. Tuesday 147/102. She has concerns about her diastolic numbers. Also states that she has been having congestion and a productive cough with green sputum over the past couple days. She also reports intermittent left-sided chest pain over the past 2 weeks and also states that she has noticed shortness of breath since Tuesday. Denies any fevers, chills, nausea, vomiting, abdominal pain, dysuria, hematuria or any other associated symptoms at this time. She also notes that she does not have a history of hypertension and is not on blood pressure medication. Related Data Home Medications Medication Instructions Recorded Confirmed atorvastatin 10 mg tablet 10 mg PO HS Cholesterol 08/13/19 07/29/23 Previous Rx's Medication Instructions Recorded azithromycin 250 mg tablet 250 mg PO UD DOSE PK #6 tabs 07/29/23 (Zithromax) benzonatate 100 mg capsule 100 mg PO TIDP PRN Cough #30 caps 07/29/23 methylprednisolone 4 mg tablets in 4 mg PO DIRECTED 6 days #21 tabs 07/29/23 a dose pack Allergies Allergy/AdvReac Type Severity Reaction Status Date / Time Penicillins Allergy Verified 12/27/22 11:27 [facility] Disclaimer: The information contained in this section may have been updated after the patient was seen, as this information can be updated by other users. Medical History Anxiety Depression GERD (gastroesophageal reflux disease) Urinary tract infection Surgical History H/O tubal ligation History of cholecystectomy Social History Smoking Status: Current every day smoker tobacco type: cigarettes packs per day: 1 alcohol intake: never current occupational status: other Travel in the last 8 weeks: None ROS Obtained: Yes All systems reviewed & no additional complaints except as documented Physical Exam General General appearance: alert and in no apparent distress Head Head exam: atraumatic and normocephalic Eye Eye exam: Present normal appearance, PERRL and EOMI ENT ENT exam: Present normal oropharynx and mucous membranes moist Neck Neck exam: Present full ROM; Absent meningismus Respiratory Respiratory exam: Absent respiratory distress, wheezes, stridor or accessory muscle use Cardiovascular Cardiovascular exam: Present normal rhythm Abdominal Exam Abdominal exam: Present soft; Absent distention, tenderness, guarding, rebound or rigidity Neurological Exam Neurological exam: Present alert, oriented X3 and CN II-XII intact; Absent motor sensory deficit Psychiatric Psychiatric exam: Present normal affect and normal mood Skin Skin exam: Present warm and dry Medical Decision Making Medical Records Medical records reviewed: Yes I reviewed the patient's medical records. Kenny Inquiry Pt receiving controlled substance: No Kenny was queried for this patient: No Vital Signs: 02/19/24 10:27 09/19/23 11:00 09/19/23 11:30 Temperature 98.0 F Temperature Source Oral Pulse Rate 77 75 Pulse Rate [Radial] 86 Respiratory Rate 18 17 18 Blood Pressure 153/100 H 142/87 H Blood Pressure [Right Arm] 165/105 H Blood Pressure Mean [Right Arm] 125 Blood Pressure Source [Right Arm] Automatic Cuff Blood Pressure Position [Right Arm] Sitting 02 Sat by Pulse Oximetry 99 98 97 Oxygen Delivery Method Room Air Room Air 09/19/23 12:00 09/19/23 12:30 09/19/23 13:00 Temperature Temperature Source Pulse Rate 76 70 Pulse Rate [Radial] Respiratory Rate 19 17 14 Blood Pressure 140/89 132/89 134/89 Blood Pressure [Right Arm] Blood Pressure Mean [Right Arm] Blood Pressure Source [Right Arm] Blood Pressure Position [Right Arm] 02 Sat by Pulse Oximetry 95 96 96 Oxygen Delivery Method Room Air Room Air 09/19/23 13:30 Temperature Temperature Source Pulse Rate 68 Pulse Rate [Radial] Respiratory Rate 19 Blood Pressure 127/91 H Blood Pressure [Right Arm] Blood Pressure Mean [Right Arm] Blood Pressure Source [Right Arm] Blood Pressure Position [Right Arm] 02 Sat by Pulse Oximetry 95 Oxygen Delivery Method Lab Data Lab Results 09/19/23 10:33: WBC 7.4, RBC 5.04, Hgb 16.4 H, Hct 49.1 H, MCV 97.4, MCH 32.5 H, MCHC 33.4, RDW 13.3, Plt Count 366, MPV 7.8, Neut % (Auto) 51.4, Lymph % (Auto) 39.5, Barton % (Auto) 7.1, Eos % (Auto) 1.2, Baso % (Auto) 0.7, Neut # (Auto) 3.8, Lymph # (Auto) 2.9, Barton # (Auto) 0.5, Eos # (Auto) 0.1, Baso # (Auto) 0.1, Sodium 139, Potassium 3.3 L, Chloride 106, Carbon Dioxide 29, Anion Gap 7.3, BUN 11, Creatinine 0.60, Estimated Creat Clear 80, Estimated GFR 102, Est GFR ( Amer) 124, Glucose 90, Calcium 9.0, Total Bilirubin 0.5, AST 25, ALT 26, Alkaline Phosphatase 79, Troponin I < 0.01, Total Protein 7.7, Albumin 4.5, Globulin 3.2, Albumin/Globulin Ratio 1.4 09/19/23 10:58: SARS-CoV-2 (PCR) Not detected, Influenza A Untype (PCR) Not detected, Influenza Type B (PCR) Not detected 09/19/23 13:18: Troponin I < 0.01 09/19/23 10:33 09/19/23 10:33 Orders (Tests/Meds): ORDERS Category Date Time Status CXR 2 view (NOT portable) [XR chest 2V] Stat Exams 09/19/23 10:45 Completed Complete Blood Count Auto Diff Stat Lab 09/19/23 10:33 Completed Comprehensive Metabolic Panel Stat Lab 09/19/23 10:33 Completed Rapid PCR Covid and Flu A/B Stat Lab 09/19/23 10:58 Completed Troponin I Q3H Lab 09/19/23 13:18 Completed Troponin I Q3H Lab 09/19/23 17:00 Ordered Troponin I Stat Lab 09/19/23 10:33 Completed ECG initial Besson Routine Y 09/19/23 10:29 Completed ECG Data Tracing #1: I reviewed this ECG and interpreted as documented below: EKG personally interpreted by me. Normal sinus rhythm with a rate of [address] elevations to suggest ischemia. QTc of 391. HEART Score History (anamnesis): Slightly suspicious ECG: Normal Age: 45-65 years Risk factors: 1-2 risk factors Troponin: </= normal limit HEART Score: 2 Medical Decision Narrative: 58-year-old female with past medical history significant for anxiety, depress ion, GERD, HLD, presents today for evaluation concerning high blood pressure readings over the past 3 days. She states that on Tuesday she noted a blood pressure of 220/100. Tuesday 147/100. Tuesday 147/102. She has concerns about her diastolic numbers. Also states that she has been having congestion and a productive cough with green sputum over the past couple days. She also reports intermittent left-sided chest pain over the past 2 weeks and also states that she has noticed shortness of breath since Tuesday. On assessment, the patient was hemodynamically stable and in no acute distress. Afebrile. Her blood pressure was noted to be 165/105. She did not complain of any headache or vi sual disturbances. Also denies any current chest pain. Chest is clear to auscultation bilaterally. Abdomen soft nondistended nontender to palpation. No peripheral edema noted. Other physical exam findings unremarkable. Differential diagnoses include but not limited to STEMI, NSTEMI, pleural ef fusion, pneumonia, hypertension, viral syndrome, among others. Patient's chest x-ray was informally interpreted by me and was without any acute cardiopulmonary disease process. Radiology report confirmed. Mild hemoconcentration on CBC. WBC of 7.4. CMP with potassium of 3.3. I have ordered for replacement. Initial troponin less than 0.01, second troponin less than 0.01. Creatinine within range at 0.6. Negative COVID and influenza swabs. On reassessment the patient remains medically stable and in no acute distress. States that her symptoms are resolved at this time. Blood pressure much improved without intervention on multiple reads. 130/88 at bedside. Discussed with patient ED work-up and results and current plan to discharge. Provided with return to ED precautions and instructions concerning PCP follow-up. She does not have a PCP and I provided her with information to assist with establishing care with a new provider. patient verbalized understanding and agreement with plan. Subsequently discharged hemodynamically stable and in no acute distress. Critical Care Critical Care Time Critical Care Time: No
[2023-09-19 11:01] LABS: Coronavirus 19, PCR Not Detected (NotDetected); Influenza A, PCR Not Detected (NotDetected); Influenza B, PCR Not Detected (NotDetected)
[2023-09-19 11:03] LABS: Chloride 106 mmol/L (98-107); Sodium 139 mmol/L (136-145)
[2023-09-19 11:04] LABS: Potassium 3.3 mmoL/L (3.5-5.1)
--- NOTE | 2023-09-19 11:04 | PC.NURSE ---
Pt ambulatory to RAD for CXR
[2023-09-19 11:06] LABS: Alanine Aminotransferase 26 U/L (12-78); Albumin Level 4.5 g/dl (3.5-5.0); Albumin/Globulin Ratio 1.4 (1.1-1.8); Alkaline Phosphatase 79 U/L (38-126); Anion Gap 7.3 mEq/L (5-15); Aspartate Amino Transferase 25 U/L (14-36); Bilirubin,Total 0.5 mg/dl (0.2-1.3); Blood Urea Nitrogen 11 mg/dl (7-17); Carbon Dioxide 29 mmol/L (22.0-30.0); Creatinine Clearance Estimated 80 mL/min (50-200); Estimated Glomerular Filt Rate 102 ml/min (>60); GFR (African American) 124 ML/MIN (>60); Globulin 3.2 g/dL (1.3-3.2); Total Protein,Serum 7.7 g/dl (6.3-8.2)
[2023-09-19 11:07] LABS: Glucose 90 mg/dl (74-100)
--- NOTE | 2023-09-19 11:13 | PC.NURSE ---
Pt returned from RAD
[2023-09-19 11:23] LABS: Troponin I < 0.01 ng/ml (0.00-0.034)
--- NOTE | 2023-09-19 12:48 | PC.NURSE ---
Pt ambulatory to bathroom and back to bed
--- NOTE | 2023-09-19 12:55 | PC.NURSE ---
Pt updated on POC and voiced understanding. No needs voiced. call light remains with reach
--- NOTE | 2023-09-19 13:19 | PC.NURSE ---
REPEAT TROP SENT TO LAB
[2023-09-19 14:15] LABS: Troponin I < 0.01 ng/ml (0.00-0.034)
[2023-09-19] MEDS: POTASSIUM CHLORIDE 20MEQ TAB 40 MEQ PO (14:32)
== END 2023-09-19 14:35 | disposition home or self-care (01) ==
PROVIDERS: Emergency Provider Emergency Medicine
DX: R07.9 Chest pain, unspecified (principal); R06.02 Shortness of breath; I10 Essential (primary) hypertension; R05.9 Cough, unspecified; R09.81 Nasal congestion; K21.9 Gastro-esophageal reflux disease without esophagitis; E78.5 Hyperlipidemia, unspecified; F17.210 Nicotine dependence, cigarettes, uncomplicated
CPT/HCPCS: 71046; 80053; 84484; 85025; 87636; 93005; 99285

== ENCOUNTER 2023-10-07 19:26 | Emergency (ER) | payer OTHER, SELFPAY ==
[2023-10-07] VITALS (16 sets, daily range): BP systolic 107–165; BP diastolic 70–101; PULSE 71–85; RESP 18–24; TEMP 36.5–36.8; O2SAT 95–98; BMI 17.7
--- NOTE | 2023-10-07 19:29 | ECG_ITS ---
APPROVED REPORT Exam: Resting ECG HR:76 bpm ECG Measurements Heart Rate 76 AXES [place] 112 P 52 QRSd 81 QRS 66 QT 372 T 60 QTc 403 Conclusion SINUS RHYTHM WITH SHORT NY INTERVAL SEPTAL MYOCARDIAL INFARCTION , OF INDETERMINATE AGE [40+ ms Q WAVE IN V1/V2] ABNORMAL ECG Electronically signed by : NANCY KENNY, 11/03/2023 15:32:04
--- NOTE | 2023-10-07 19:41 | XR_ITS ---
PROCEDURE INFORMATION: Exam: XR Chest Exam date and time: 10/07/2023 7:41 PM Age: 58 years old Clinical indication: Pain; Chest pressure; Additional info: Cp, SOA TECHNIQUE: Imaging protocol: Radiologic exam of the chest. Views: 1 view. COMPARISON: CR XR CHEST 2V 09/19/2023 10:55 AM FINDINGS: Lungs: Mild centrilobular emphysematous changes are present as evidenced by mild hyper aeration and hypo vascularity to the lung apices. The lungs appear clear. No focal areas of consolidation. Pleural spaces: No pleural effusions. Negative for pneumothorax. Heart/Mediastinum: Cardiac silhouette and pulmonary vasculature are within range of normal. The aorta demonstrates mild atherosclerotic calcification. Organs: Surgical clips in the right upper quadrant indicate cholecystectomy. Bones/joints: There is no evidence of acute fracture. IMPRESSION: 1. Negative for an acute cardiopulmonary abnormality. 2. Mild emphysematous changes with stable mild hyperaeration.
[2023-10-07 20:01] LABS: Basophils # 0.1 K/mm3 (0-0.2); Basophils % 1.7 % (0.1-2.0); Eosinophils # 0.2 K/mm3 (0.0-0.4); Eosinophils % 1.9 % (0.1-12.0); Hematocrit 47.3 % (37.0-47.0); Hemoglobin 15.3 g/dL (12.2-16.2); Lymphocytes # 4.2 K/mm3 (0.7-4.5); Lymphocytes % 49.4 % (10-50); Mean Corpuscular HGB Conc 32.3 g/dL (31.8-35.4); Mean Corpuscular Hemoglobin 32.4 pg (27.0-31.2); Mean Corpuscular Volume 100.4 fl (81-99); Mean Platelet Volume 7.6 fl (7.4-10.4); Monocytes # 0.6 K/mm3 (0.1-1.0); Neutrophils # 3.4 K/mm3 (1.8-7.8); Neutrophils % 40.1 % (37.0-80.0); Platelet Count 334 K/mm3 (142-424); Red Blood Count 4.71 M/mm3 (4.20-5.40); Red Cell Distribution Width 13.5 % (11.5-17.5); White Blood Count 8.5 K/mm3 (4.8-10.8)
[2023-10-07 20:02] LABS: Chloride 106 mmol/L (98-107)
[2023-10-07 20:03] LABS: Potassium 3.3 mmoL/L (3.5-5.1); Sodium 142 mmol/L (136-145)
[2023-10-07] MEDS: ASPIRIN 81MG CHEWABLE TABLET 324 MG PO (20:03)
[2023-10-07 20:05] LABS: Alanine Aminotransferase 25 U/L (12-78); Blood Urea Nitrogen 14 mg/dl (7-17); Creatinine Clearance Estimated 80 mL/min (50-200); Estimated Glomerular Filt Rate 102 ml/min (>60); GFR (African American) 124 ML/MIN (>60)
[2023-10-07 20:06] LABS: Albumin Level 4.1 g/dl (3.5-5.0); Albumin/Globulin Ratio 1.3 (1.1-1.8); Alkaline Phosphatase 81 U/L (38-126); Anion Gap 7.3 mEq/L (5-15); Aspartate Amino Transferase 25 U/L (14-36); Bilirubin,Total 0.4 mg/dl (0.2-1.3); Calcium 9.3 mg/dl (8.4-10.2); Carbon Dioxide 32 mmol/L (22.0-30.0); Globulin 3.1 g/dL (1.3-3.2); Glucose 85 mg/dl (74-100); Total Protein,Serum 7.2 g/dl (6.3-8.2)
--- NOTE | 2023-10-07 20:12 | [facility].EDCP ---
Discharge Plan Disposition Patient Disposition: Home, Self-Care Prescriptions Prescriptions: No Action azithromycin [Zithromax] 250 mg tablet 250 mg PO UD DOSE PK Qty: 6 0RF Rx Instructions: Take two (2) tablets today, then one (1) tablet days #2 thru #5 benzonatate [benzonatate] 100 mg capsule 100 mg PO TIDP PRN (Reason: Cough) Qty: 30 0RF methylprednisolone 4 mg Tablets,Dose Pack 4 mg PO DIRECTED 6 Days Qty: 21 0RF Rx Instructions: Take 1 pack as directed for 6 days atorvastatin 10 MG tablet 10 mg PO HS Referrals Follow up/Referrals: Blaise Lozano MD [Primary Care Provider] - See instructions Activity Restrictions/Add. Instructions Additional Instructions/Restrictions: Please follow-up with your primary care provider. Please return to the emergency department if you develop any new or worsening symptoms or become concerned for your health. Clinical Impressions Clinical Impression: Chest pain Discharge ED Provider: Sudhir Bocanegra HPI <Sudhir Bocanegra MD - Last Filed: 10/07/23 22:55> General Chief Complaint: Chest Pain Stated Complaint: Chest Pain Time Seen by Provider: 10/07/23 19:32 Mode of Arrival: Ambulatory Source of Information: Patient Limitations: No Limitations Description of Symptoms (Recalled from ER Triage Doc. by RN): Pt ambulatory to ED with C/O left sided chest pain starting 1 hour ago. Pt states she has also had right arm pain. Pt describes chest pain as twitching , and states she felt like her heart was racing, and she was going to black out. Pt states she has high cholesterol, and hypertension. Pt has not taken any medication for pain. History of Present Illness HPI narrative: 58-year-old female history of hypertension, hyperlipidemia, CAD, likely COPD with current smoking history presenting with chest pain and shortness of breath. She states that she has been having shortness of breath over the past couple of days, she has also been having intermittent twinges, in the left side of her chest. She started having these discomforts in the left side of her chest about an hour to 2 hours prior to this for to the urgency department. They are self abating, do not radiate, not associated with diaphoresis. This most recent episode about an hour prior to this visit, however, was associated with nausea without vomiting, strong urge to have a bowel movement, tunnel vision, and presyncope. Symptoms improved with bowel movement. Patient did not syncopized. No neurologic deficits that are lasting. Related Data Home Medications Medication Instructions Recorded Confirmed atorvastatin 10 mg tablet 10 mg PO HS Cholesterol 08/13/19 07/29/23 Previous Rx's Medication Instructions Recorded azithromycin 250 mg tablet 250 mg PO UD DOSE PK #6 tabs 07/29/23 (Zithromax) benzonatate 100 mg capsule 100 mg PO TIDP PRN Cough #30 caps 07/29/23 methylprednisolone 4 mg tablets in 4 mg PO DIRECTED 6 days #21 tabs 07/29/23 a dose pack Allergies Allergy/AdvReac Type Severity Reaction Status Date / Time Penicillins Allergy Verified 12/27/22 11:27 [facility] <Sudhir Bocanegra MD - Last Filed: 10/07/23 22:55> [facility] Disclaimer: The information contained in this section may have been updated after the patient was seen, as this information can be updated by other users. Medical History Anxiety Depression GERD (gastroesophageal reflux disease) Urinary tract infection Surgical History H/O tubal ligation History of cholecystectomy Social History Smoking Status: Current every day smoker tobacco type: cigarettes packs per day: 1 alcohol intake: never current occupational status: other Travel in the last 8 weeks: None <Sudhir Bocanegra MD - Last Filed: 10/07/23 22:55> ROS Obtained: Yes All systems reviewed & no additional complaints except as documented Physical Exam <Sudhir Bocanegra MD - Last Filed: 10/07/23 22:55> General General appearance: alert Neck Neck exam: Present trachea midline Chest Chest inspection: Present normal inspection and symmetric chest wall rise Respiratory Respiratory exam: Present normal lung sounds bilaterally; Absent respiratory distress, wheezes, stridor, accessory muscle use or prolonged expiratory phase Cardiovascular Cardiovascular exam: Present regular rate and normal rhythm Extremities Exam Extremities exam: Absent edema Neurological Exam Neurological exam: Present alert, oriented X3 and CN II-XII intact Skin Skin exam: Present warm and dry; Absent cyanosis, diaphoresis or pallor HEART Score <Sudhir Bocanegra MD - Last Filed: 10/07/23 22:55> HEART Score HEART Score assessment performed?: Yes History (anamnesis): Slightly suspicious ECG: Non-specific disturbance Age: 45-65 years Risk factors: 1-2 risk factors Troponin: </= normal limit HEART Score: 3 <Alli Judd MD - Last Filed: 10/07/23 23:22> HEART Score HEART Score: 3 Critical Care <Sudhir Bocanegra MD - Last Filed: 10/07/23 22:55> Critical Care Time Critical Care Time: No Medical Decision Making <Sudhir Bocanegra MD - Last Filed: 10/07/23 22:55> Medical Records Medical records reviewed: Yes I reviewed the patient's medical records. Kenny Inquiry Pt receiving controlled substance: No Kenny was queried for this patient: No Vital Signs Vital Signs: 10/07/23 19:34 10/07/23 20:00 10/07/23 20:03 Temperature 97.7 F Temperature Source Oral Pulse Rate 79 84 Pulse Rate [Right Radial] 85 Respiratory Rate 20 Blood Pressure 151/92 H Blood Pressure [Left Arm] 165/101 H Blood Pressure Mean Blood Pressure Mean [Left Arm] 122 Blood Pressure Source [Left Arm] Automatic Cuff Blood Pressure Position [Left Arm] Sitting 02 Sat by Pulse Oximetry 98 96 Oxygen Delivery Method Room Air 10/07/23 20:15 10/07/23 20:30 10/07/23 20:45 Temperature Temperature Source Pulse Rate 83 76 76 Pulse Rate [Right Radial] Respiratory Rate 20 24 Blood Pressure 138/79 132/87 130/82 Blood Pressure [Left Arm] Blood Pressure Mean Blood Pressure Mean [Left Arm] Blood Pressure Source [Left Arm] Blood Pressure Position [Left Arm] 02 Sat by Pulse Oximetry 95 96 96 Oxygen Delivery Method 10/07/23 21:00 10/07/23 21:15 10/07/23 21:30 Temperature Temperature Source Pulse Rate 71 75 74 Pulse Rate [Right Radial] Respiratory Rate 18 21 21 Blood Pressure 126/80 127/82 116/74 Blood Pressure [Left Arm] Blood Pressure Mean Blood Pressure Mean [Left Arm] Blood Pressure Source [Left Arm] Blood Pressure Position [Left Arm] 02 Sat by Pulse Oximetry 96 96 95 Oxygen Delivery Method 10/07/23 21:45 10/07/23 22:00 10/07/23 22:15 Temperature Temperature Source Pulse Rate 76 79 77 Pulse Rate [Right Radial] Respiratory Rate 21 20 21 Blood Pressure 114/70 109/72 L 117/75 Blood Pressure [Left Arm] Blood Pressure Mean 90 86 Blood Pressure Mean [Left Arm] Blood Pressure Source [Left Arm] Blood Pressure Position [Left Arm] 02 Sat by Pulse Oximetry 95 96 96 Oxygen Delivery Method Room Air Room Air 10/07/23 22:30 10/07/23 22:45 Temperature Temperature Source Pulse Rate 75 72 Pulse Rate [Right Radial] Respiratory Rate 23 20 Blood Pressure 111/75 107/79 L Blood Pressure [Left Arm] Blood Pressure Mean Blood Pressure Mean [Left Arm] Blood Pressure Source [Left Arm] Blood Pressure Position [Left Arm] 02 Sat by Pulse Oximetry 95 97 Oxygen Delivery Method Lab Data Labs: Lab Results 10/07/23 19:40: WBC 8.5, RBC 4.71, Hgb 15.3, Hct 47.3 H, MCV 100.4 H, MCH 32.4 H, MCHC 32.3, RDW 13.5, Plt Count 334, MPV 7.6, Neut % (Auto) 40.1, Lymph % (Auto) 49.4, Bledsoe % (Auto) 7.0, Eos % (Auto) 1.9, Baso % (Auto) 1.7, Neut # (Auto) 3.4, Lymph # (Auto) 4.2, Bledsoe # (Auto) 0.6, Eos # (Auto) 0.2, Baso # (Auto) 0.1, Sodium 142, Potassium 3.3 L, Chloride 106, Carbon Dioxide 32 H, Anion Gap 7.3, BUN 14, Creatinine 0.60, Estimated Creat Clear 80, Estimated GFR 102, Est GFR ( Amer) 124, Glucose 85, Calcium 9.3, Total Bilirubin 0.4, AST 25, ALT 25, Alkaline Phosphatase 81, Troponin I < 0.01, NT-Pro-B Natriuret Pep 43.2, Total Protein 7.2, Albumin 4.1, Globulin 3.1, Albumin/Globulin Ratio 1.3 10/07/23 22:45: Troponin I < 0.01 10/07/23 19:40 10/07/23 19:40 Response Orders (Tests/Meds): ED MEDICATIONS Discontinued Medications Generic Name Dose Route Start Last Admin Trade Name Freq PRN Reason Stop Dose Admin Aspirin 324 mg 10/07/23 19:41 10/07/23 20:03 Aspirin 81mg Chewable Tablet PO 10/07/23 19:42 324 mg ONCE ONE Administration ORDERS Category Date Time Status CXR --portable [XR chest portable] Stat Exams 10/07/23 19:41 Completed Brain Natriuretic Peptide Stat Lab 10/07/23 19:40 Completed CBC w/Auto Diff [Complete Blood Count Auto Diff] Stat Lab 10/07/23 19:40 Completed CMP [Comprehensive Metabolic Panel] Stat Lab 10/07/23 19:40 Completed Trop I [Troponin I] Stat Lab 10/07/23 19:40 Completed Troponin I Q3H Lab 10/07/23 22:45 Completed Troponin I Q3H Lab 10/08/23 01:45 Ordered MDM Narrative Medical Decision Narrative: 58-year-old female history of hypertension, hyperlipidemia, CAD, likely COPD with current smoking history presenting with chest pain and shortness of breath. She states that she has been having shortness of breath over the past couple of days, she has also been having intermittent twinges, in the left side of her chest. She started having these discomforts in the left side of her chest about an hour to 2 hours prior to this for to the urgency department. They are self abating, do not radiate, not associated with diaphoresis. This most recent episode about an hour prior to this visit, however, was associated with nausea without vomiting, strong urge to have a bowel movement, tunnel vision, and presyncope. Symptoms improved with bowel movement. Patient did not syncopized. No neurologic deficits that are lasting. History obtained with patient. On arrival, patient hemodynamically stable, afebrile, mildly hypertensive, nontachycardic, saturating appropriately on room air. Physical exam with anxious appearing woman in no acute distress. Lungs are clear to auscultation bilaterally, heart sounds are normal. Pulses are equal and symmetric, no lower extremity edema. Differential includes microvascular coronary artery disease, CHF, ACS, MO, coronary artery dissection, pneumothorax, PE, dissection, pericarditis, myocarditis, pneumothorax, aortic aneurysm, pneumonia, bronchitis, among others. Patient was given 324 mg aspirin p.o. for symptomatic management and correction of underlying abnormalities. Workup independently interpreted and significant for nonactionable CBC or chemistry. Initial troponin negative. BNP negative. Chest x-ray without acute cardiopulmonary airspace disease. See radiology read for full review of final results. Independent interpretation of EKG shows sinus rhythm 76 beats a minute no ST or T wave changes concerning for acute ischemia. Q waves in septal leads. NC, QRS, QT intervals within normal limits. Patient was placed in observation beginning at 8 PM in order to rule out evolving MO with delta troponins and determine need for admission versus home-going. The patient was provided serial exams and monitoring while awaiting results. Prior to delta troponin, care ended up to oncoming physician. <Alli Judd MD - Last Filed: 10/07/23 23:22> Vital Signs Vital Signs: 10/07/23 19:34 10/07/23 20:00 10/07/23 20:03 Temperature 97.7 F Temperature Source Oral Pulse Rate 79 84 Pulse Rate [Right Radial] 85 Respiratory Rate 20 Blood Pressure 151/92 H Blood Pressure [Left Arm] 165/101 H Blood Pressure Mean Blood Pressure Mean [Left Arm] 122 Blood Pressure Source [Left Arm] Automatic Cuff Blood Pressure Position [Left Arm] Sitting 02 Sat by Pulse Oximetry 98 96 Oxygen Delivery Method Room Air 10/07/23 20:15 10/07/23 20:30 10/07/23 20:45 Temperature Temperature Source Pulse Rate 83 76 76 Pulse Rate [Right Radial] Respiratory Rate 20 24 Blood Pressure 138/79 132/87 130/82 Blood Pressure [Left Arm] Blood Pressure Mean Blood Pressure Mean [Left Arm] Blood Pressure Source [Left Arm] Blood Pressure Position [Left Arm] 02 Sat by Pulse Oximetry 95 96 96 Oxygen Delivery Method 10/07/23 21:00 10/07/23 21:15 10/07/23 21:30 Temperature Temperature Source Pulse Rate 71 75 74 Pulse Rate [Right Radial] Respiratory Rate 18 21 21 Blood Pressure 126/80 127/82 116/74 Blood Pressure [Left Arm] Blood Pressure Mean Blood Pressure Mean [Left Arm] Blood Pressure Source [Left Arm] Blood Pressure Position [Left Arm] 02 Sat by Pulse Oximetry 96 96 95 Oxygen Delivery Method 10/07/23 21:45 10/07/23 22:00 10/07/23 22:15 Temperature Temperature Source Pulse Rate 76 79 77 Pulse Rate [Right Radial] Respiratory Rate 21 20 21 Blood Pressure 114/70 109/72 L 117/75 Blood Pressure [Left Arm] Blood Pressure Mean 90 86 Blood Pressure Mean [Left Arm] Blood Pressure Source [Left Arm] Blood Pressure Position [Left Arm] 02 Sat by Pulse Oximetry 95 96 96 Oxygen Delivery Method Room Air Room Air 10/07/23 22:30 10/07/23 22:45 Temperature Temperature Source Pulse Rate 75 72 Pulse Rate [Right Radial] Respiratory Rate 23 20 Blood Pressure 111/75 107/79 L Blood Pressure [Left Arm] Blood Pressure Mean Blood Pressure Mean [Left Arm] Blood Pressure Source [Left Arm] Blood Pressure Position [Left Arm] 02 Sat by Pulse Oximetry 95 97 Oxygen Delivery Method Lab Data Labs: Lab Results 10/07/23 19:40: WBC 8.5, RBC 4.71, Hgb 15.3, Hct 47.3 H, MCV 100.4 H, MCH 32.4 H, MCHC 32.3, RDW 13.5, Plt Count 334, MPV 7.6, Neut % (Auto) 40.1, Lymph % (Auto) 49.4, Bledsoe % (Auto) 7.0, Eos % (Auto) 1.9, Baso % (Auto) 1.7, Neut # (Auto) 3.4, Lymph # (Auto) 4.2, Bledsoe # (Auto) 0.6, Eos # (Auto) 0.2, Baso # (Auto) 0.1, Sodium 142, Potassium 3.3 L, Chloride 106, Carbon Dioxide 32 H, Anion Gap 7.3, BUN 14, Creatinine 0.60, Estimated Creat Clear 80, Estimated GFR 102, Est GFR ( Amer) 124, Glucose 85, Calcium 9.3, Total Bilirubin 0.4, AST 25, ALT 25, Alkaline Phosphatase 81, Troponin I < 0.01, NT-Pro-B Natriuret Pep 43.2, Total Protein 7.2, Albumin 4.1, Globulin 3.1, Albumin/Globulin Ratio 1.3 10/07/23 22:45: Troponin I < 0.01 Response Orders (Tests/Meds): ED MEDICATIONS Discontinued Medications Generic Name Dose Route Start Last Admin Trade Name Freq PRN Reason Stop Dose Admin Aspirin 324 mg 10/07/23 19:41 10/07/23 20:03 Aspirin 81mg Chewable Tablet PO 10/07/23 19:42 324 mg ONCE ONE Administration ORDERS Category Date Time Status CXR --portable [XR chest portable] Stat Exams 10/07/23 19:41 Completed Brain Natriuretic Peptide Stat Lab 10/07/23 19:40 Completed CBC w/Auto Diff [Complete Blood Count Auto Diff] Stat Lab 10/07/23 19:40 Completed CMP [Comprehensive Metabolic Panel] Stat Lab 10/07/23 19:40 Completed Trop I [Troponin I] Stat Lab 10/07/23 19:40 Completed Troponin I Q3H Lab 10/07/23 22:45 Completed Troponin I Q3H Lab 10/08/23 01:45 Ordered MDM Narrative Medical Decision Narrative: 58-year-old female history of hypertension, hyperlipidemia, CAD, likely COPD with current smoking history presenting with chest pain and shortness of breath. She states that she has been having shortness of breath over the past couple of days, she has also been having intermittent twinges, in the left side of her chest. She started having these discomforts in the left side of her chest about an hour to 2 hours prior to this for to the urgency department. They are self abating, do not radiate, not associated with diaphoresis. This most recent episode about an hour prior to this visit, however, was associated with nausea without vomiting, strong urge to have a bowel movement, tunnel vision, and presyncope. Symptoms improved with bowel movement. Patient did not syncopized. No neurologic deficits that are lasting. History obtained with patient. On arrival, patient hemodynamically stable, afebrile, mildly hypertensive, nontachycardic, saturating appropriately on room air. Physical exam with anxious appearing woman in no acute distress. Lungs are clear to auscultation bilaterally, heart sounds are normal. Pulses are equal and symmetric, no lower extremity edema. Differential includes microvascular coronary artery disease, CHF, ACS, MO, coronary artery dissection, pneumothorax, PE, dissection, pericarditis, myocarditis, pneumothorax, aortic aneurysm, pneumonia, bronchitis, among others. Patient was given 324 mg aspirin p.o. for symptomatic management and correction of underlying abnormalities. Workup independently interpreted and significant for nonactionable CBC or chemistry. Initial troponin negative. BNP negative. Chest x-ray without acute cardiopulmonary airspace disease. See radiology read for full review of final results. Independent interpretation of EKG shows sinus rhythm 76 beats a minute no ST or T wave changes concerning for acute ischemia. Q waves in septal leads. NC, QRS, QT intervals within normal limits. Patient was placed in observation beginning at 8 PM in order to rule out evolving MO with delta troponins and determine need for admission versus home-going. The patient was provided serial exams and monitoring while awaiting results. Prior to delta troponin, care ended up to oncoming physician. Dutch MOREIRA: I assumed care of the patient at the time of handoff from the prior provider. On reassessment, patient karolina hemodynamically stable and reports she has had symptomatic resolution.. At 1115, second troponin returned undetectably low. Given this, patient was taken out of observation status at 1115, total time in observation 3 hours and 15 minutes. Interactive discussion had with patient regarding her symptoms. Patient discharged in stable condition. Return precautions given.
[2023-10-07 20:15] LABS: NT Pro Brain Natriuretic Pep. 43.2 pg/mL (0-125)
[2023-10-07 20:19] LABS: Troponin I < 0.01 ng/ml (0.00-0.034)
--- NOTE | 2023-10-07 21:38 | PC.NURSE ---
rounded on pt at this time. Pt denies CP. Voices no needs at this time.
--- NOTE | 2023-10-07 22:54 | PC.NURSE ---
2nd troponin sent to lab
[2023-10-07 23:16] LABS: Troponin I < 0.01 ng/ml (0.00-0.034)
== END 2023-10-07 23:31 | disposition home or self-care (01) ==
PROVIDERS: Emergency Provider Emergency Medicine; PCP Family Medicine
DX: R07.89 Other chest pain (principal); R11.0 Nausea; I11.9 Hypertensive heart disease without heart failure; I25.10 Atherosclerotic heart disease of native coronary artery without angina pectoris; E78.5 Hyperlipidemia, unspecified; F17.210 Nicotine dependence, cigarettes, uncomplicated; K21.9 Gastro-esophageal reflux disease without esophagitis
CPT/HCPCS: 71045; 80053; 83880; 84484; 85025; 93005; 99284

== ENCOUNTER 2023-10-10 14:55 | Outpatient (CLI) | payer OTHER, SELFPAY | END 2023-10-10 23:59 | LOC: RT 14:55 | PROVIDERS: PCP Family Medicine; Visit Provider Internal Medicine | DX: R55 Syncope and collapse (principal); R00.2 Palpitations; R94.31 Abnormal electrocardiogram [ECG] [EKG]; R07.9 Chest pain, unspecified; R06.02 Shortness of breath; R53.83 Other fatigue; E78.5 Hyperlipidemia, unspecified; I10 Essential (primary) hypertension; F17.210 Nicotine dependence, cigarettes, uncomplicated | CPT/HCPCS: 93270 ==

== ENCOUNTER 2023-10-18 12:01 | Outpatient (CLI) | payer OTHER, SELFPAY ==
--- NOTE | 2023-10-18 | CA_ITS ---
APPROVED REPORT Exam: Pharmacologic Technologist: Maite Martinez Ht: 5 ft 6 in Wt: 111 lbs BSA: 1.56 m2 HR: 91 bpm BP: 145/87 mmHg Rhythm: SR Medical History Medical History: HTN, Hyperlipidemia, Smoking Medications: Omeprazole,,,,, Losartan,,,,, Atorvastatin,,,,, Buspirone,,,,, Albuterol,,,,, Montelukast,,,,, Alendronate,,,,, Allergies: PENICILLIN Cardiac Risk Factors: HTN, Hyperlipidemia, FHX of CAD, Smoking Stress Test Details Test: LEXISCAN HR Resting HR: 84 bpm Max Heart Rate (APMHR): 161 bpm Max HR Achieved: 123 bpm Target HR (85% APMHR): 137 bpm % of APMHR: 76 Recovery HR: 90 bpm BP Resting BP: 145/87 mmHg Max BP: 145/87 mmHg Recovery BP: 125.0/82.0 mmHg ECG Resting ECG: Normal sinus rhythm Stress ECG: No significant ST changes Arrhythmia: None Clinical Exercise duration: 04:01 min Highest Stage Achieved: Stress ECG Conclusion Patient had no symptoms. No significant ST changes No ectopy was noted. Conclusion: Unremarkable Lexiscan stress test. Myoview images are reported separately. Test Summary REST 00:45 . . 84 . 145/ 87 . . Stage 1 . . . . . . . Myoview Injected Stage 1 01:00 . . 117 . . . . Stage 2 01:00 . . 117 . 128/ 82 . . Stage 3 01:00 . . 112 . 135/ 82 . . Stage 4 01:00 . . 111 . 129/ 81 . . Stage 4 01:01 . . 111 . 129/ 81 . Stop exercise at 04:01 RECOVERY 01:00 . . 106 . . . . RECOVERY 02:00 . . 98 . 130/ 88 . . RECOVERY 02:17 . . 91 . 125/ 82 . . Electronically signed by : Carmen Fine MD 10/19/2023 14:00:06
--- NOTE | 2023-10-18 12:01 | NM_ITS ---
APPROVED REPORT Exam: Nuclear Stress Test Indication: chest pain..soa..palpitations..syncope Patient Location: Outpatient Stress Tech: Maite Martinez [place] Tech:Abigail Du, ARRT, RT (R)(N) Ht: 5 ft 0 in Wt: 110 lbs Bra Size: 34a HR: 84 bpm BP: 145/87 mmHg BSA: 1.45 m2 TID: 1.11 History: chest pain..soa..palpitations..syncope Procedure: Patient received 0.4 mg of intravenous Lexiscan, resting heart rate 84 bpm, resting blood pressure 145/87 mmHg, with Lexiscan maximum heart rate achieved was 123 bpm which is 85 % of the maximum predicted heart rate and blood pressure was 145/87 mmHg. With Lexiscan, patient denied any complaint of chest pain. Cardiac Stress and Resting SPECT Images: Cardiac Stress and Resting SPECT images were obtained using technetium 99m Myoview 32.0 mCi stress and 10.81 mCi at rest. Resting and stress imaging in supine and prone positions demonstrate no evidence of fixed or reversible perfusion defects. Gated imaging demonstrates normal global and regional LV systolic function. LVEF is calculated at 55%. Conclusion: No evidence of fixed or reversible perfusion defects. Gated imaging demonstrates normal global and regional LV systolic function. LVEF is calculated at 55%. Electronically signed by : Carmen Fine MD 10/19/2023 13:57:47
--- NOTE | 2023-10-18 12:58 | CA_ITS ---
APPROVED REPORT EXAM: Comprehensive 2D, Doppler, and color-flow Echocardiogram Welfare Investigator: Mary Shabazz RT(R) Ht: 5 ft 5 in Wt: 110lbs BSA: 1.53 BP: 134/67 mmHg Indications: CP, smoker, palpitations, syncope, SOB, hyperlipidemia, abn EKG 2D Dimensions LVEF (Bennett's) 57.90 % F: 54 - 74 LV Volume 76.40 mL F: 46 - 106 LV Volume Index 49.6 mL/m2 F: 29 - 61 LA Volume 15.30 mL LA Volume Index 9.94 mL/m2 (M/F) 16-34 EF AP4 55.70 % EF AP2 60.3 % EF BP 57.9 % GL Strain -18.4 % M-Mode Dimensions RVDd 2.55 cm (0.9-2.6) LA Diam 2.59 cm (1.9-4.0) LVDd 4.19 cm (3.5-5.7) LVDs 2.85 cm (3.5-5.7) IVSd 0.54 cm (0.6-1.1) PWd 0.54 cm (0.6-1.1) EF (Teich) 60.40% FS 32.00% EDV (Teich) 78.10 mL ESV (Teich) 30.90 mL LV Diastology E Decel Time 190 (160-240 msec) E/A Ratio 0.9 Mitral Valve MV E Max Dalton. 73.0 (40-130 cm/s) MV A Velocity 81.0 (40-130 cm/s) E/A Ratio 0.91 MV PHT 56.0 ms Tricuspid Valve TR P. Velocity 234.00 cm/s RAP Estimate 10.00 mmHg RVSP 31.90 mmHg Left Ventricle The left ventricle is normal size. The left ventricular systolic function is normal. The left ventricular ejection fraction is within the normal range. There is normal left ventricular wall thickness. There is normal LV segmental wall motion. The left ventricular diastolic function is normal. LVEF is 55%. Right Ventricle The right ventricle is normal size. The right ventricular systolic function is normal. Atria The left atrium size is normal. The right atrium size is normal. There is no Doppler evidence of interatrial shunt. Aortic Valve The aortic valve is mildly thickened. There is no aortic valvular stenosis. Mild aortic regurgitation. Mitral Valve The mitral valve is normal in structure. No evidence of mitral valve stenosis. Mild mitral regurgitation. Tricuspid Valve The tricuspid valve leaflets are thin and pliable. Mild tricuspid regurgitation. RVSP is 20-25 mmHg. Pulmonic Valve The pulmonary valve is normal in structure. Trace pulmonic regurgitation. Great Vessels The aortic root is normal in size. The ascending aorta is normal in size. IVC is normal in size and collapses >50% with inspiration. Pericardium There is no pericardial effusion. Other Information Study Quality: Fair Conclusion Normal biventricular systolic function. Mild AI, mild MR, mild TR. Electronically signed by : Carmen Fine MD 10/19/2023 13:59:11
== END 2023-10-18 23:59 ==
LOC: RAD 12:01
PROVIDERS: PCP Family Medicine; Visit Provider Internal Medicine
DX: R55 Syncope and collapse (principal); R00.2 Palpitations; R94.31 Abnormal electrocardiogram [ECG] [EKG]; R06.02 Shortness of breath; R07.9 Chest pain, unspecified; R53.83 Other fatigue; E78.5 Hyperlipidemia, unspecified; I10 Essential (primary) hypertension; F17.210 Nicotine dependence, cigarettes, uncomplicated
CPT/HCPCS: 78452; 93017; 93018; 93306

== ENCOUNTER 2023-11-10 09:40 | Outpatient (CLI) | payer OTHER, SELFPAY ==
[2023-11-10 10:32] LABS: Blood Urea Nitrogen 17 mg/dl (7-17); Estimated Glomerular Filt Rate 102 ml/min (>60); GFR (African American) 124 ML/MIN (>60)
[2023-11-10] MEDS: SODIUM CHLORIDE 0.9% 10ML SYR (RAD ONLY) 10 ML IV (11:32)
[2023-11-10] MEDS: GADOTERIDOL INJ 17ML SYRINGE 11 ML IV (11:32)
[2023-11-10] MEDS: SODIUM CHLORIDE 0.9% 50ML BAG 35 ML IV (11:32)
== END 2023-11-10 23:59 ==
LOC: RAD 09:41
PROVIDERS: PCP Family Medicine; Visit Provider Internal Medicine
DX: I47.29 Other ventricular tachycardia (principal)
CPT/HCPCS: 36415; 75561; 82565; 84520; A9576

== ENCOUNTER 2023-11-22 15:16 | Outpatient (CLI) | payer OTHER, SELFPAY ==
[2023-11-22 17:10] LABS: Free Thyroxine Index 2.7 ug/dL (5.93-13.13); Triiodothryronine (T3) Uptake 34 % (23.5-40.5)
[2023-11-22 17:24] LABS: Thyroid Stimulating Hormone 1.63 uIU/mL (0.465-4.68)
[2023-11-22 19:43] LABS: Chol/HDL Ratio 3.9 (1-3.5); Cholesterol 174 mg/dl (140-200); HDL Cholesterol 45 mg/dl (40-60); Triglycerides 158 mg/dl (30-150); VLDL Cholesterol 32 mg/dL (0-40)
[2023-11-22 19:54] LABS: Direct LDL Cholesterol 89.39 mg/dL (100-129)
[2023-11-24 12:12] LABS: Anti-Centromere B Antibodies <0.2 AI (0.0-0.9); Anti-DNA (DS) Ab Qn <1 IU/mL (0-9); Anti-Jo-1 <0.2 AI (0.0-0.9); Anti-Smith Antibody <0.2 AI (0.0-0.9); Antichromatin Antibodies <0.2 AI (0.0-0.9); Antiscleroderma-70 Antibodies <0.2 AI (0.0-0.9); RNP Antibodies <0.2 AI (0.0-0.9); Sjogren's Anti-SS-A <0.2 AI (0.0-0.9); Sjogren's Anti-SS-B <0.2 AI (0.0-0.9)
== END 2023-11-22 23:59 | disposition home or self-care (01) ==
LOC: LAB 15:17
PROVIDERS: PCP Family Medicine; Visit Provider Internal Medicine
DX: R42 Dizziness and giddiness (principal); R55 Syncope and collapse; I47.29 Other ventricular tachycardia; R00.2 Palpitations; R94.31 Abnormal electrocardiogram [ECG] [EKG]; R53.83 Other fatigue; E78.5 Hyperlipidemia, unspecified; I10 Essential (primary) hypertension
CPT/HCPCS: 36415; 80061; 84436; 84443; 84479; 86225; 86235

== ENCOUNTER 2023-11-29 13:54 | Outpatient (CLI) | payer OTHER, SELFPAY ==
--- NOTE | 2023-11-29 14:06 | CA_ITS ---
FINAL REPORT CLINICAL HISTORY: DIZZINESS,SYNCOPE,SMOKER COMPARISON: None FINDINGS: RIGHT CAROTID: CCA PSV -77 cm/sec ICA PSV -76 cm/sec ICA/CCA PSV ratio -0.99. Comments: Mild plaque disease is noted. LEFTCAROTID: CCA PSV -92. cm/sec ICA PSV -101. cm/sec ICA/CCA PSV ratio -1.3. Comments: Mild plaque disease is noted. Antegrade flow is seen within the vertebral arteries. IMPRESSION: Carotid stenosis classified less than 50% Reviewed, Interpreted and Dictated by Josep Davies MD Transcribed by Ashley Carlson Authenticated and [facility]
== END 2023-11-29 23:59 | disposition home or self-care (01) ==
LOC: RT 13:54
PROVIDERS: PCP Family Medicine; Visit Provider Physician Assistant
DX: R42 Dizziness and giddiness (principal); R00.2 Palpitations
CPT/HCPCS: 93880

== ENCOUNTER 2023-12-16 12:37 | Emergency (ER) | payer OTHER, SELFPAY ==
--- NOTE | 2023-12-16 12:42 | EXP.UTC ---
Discharge Plan Disposition Patient Disposition: Home, Self-Care Condition: Good Prescriptions Prescriptions: New hydroxyzine HCl 25 mg tablet 25 mg PO Q8H PRN (Reason: itching) Qty: 30 0RF No Action losartan 50 mg tablet 50 mg PO DAILY Patient Comments: TAKE 1 TABLET BY MOUTH EVERY DAY omeprazole 20 mg capsule,delayed release(DR/EC) 20 mg PO DAILY PRN (Reason: GERD) Patient Comments: TAKE 1 CAPSULE BY MOUTH EVERY DAY montelukast 10 mg tablet 10 mg PO HS Patient Comments: TAKE 1 TABLET BY MOUTH EVERYDAY AT BEDTIME chlorhexidine gluconate 0.12 % mouthwash 15 ml mucous membrane BID Patient Comments: RINSE MOUTH WITH 15ML (1 CAPFUL) FOR 30 SECONDS IN MORNING AND EVENING AFTER BRUSHING, THEN SPIT fluoride (sodium) 1.1 % paste 1 applic PO BID Patient Comments: USE DIRECTED calcipotriene-betamethasone 0.005-0.064 % ointment topical albuterol sulfate [Ventolin HFA] 90 mcg/actuation HFA aerosol inhaler 2 puff inhalation Q4-6H PRN (Reason: wheezing ) Patient Comments: INHALE 2 PUFFS BY MOUTH EVERY 4 HOURS NEEDED alendronate 70 mg tablet 70 mg PO WEEKLY Patient Comments: TAKE 1 TABLET BY MOUTH WEEKLY FOR 84 DAYS diltiazem HCl 120 mg capsule,extended release 24hr 120 mg PO DAILY Qty: 30 2RF buspirone 5 mg tablet 7.5 mg PO BID Qty: 60 2RF atorvastatin 10 MG tablet 10 mg PO HS Referrals Follow up/Referrals: Blaise Lozano MD [Primary Care Provider] - See instructions Activity Restrictions/Add. Instructions Additional Instructions/Restrictions: Follow up with Dr Lozano next week Clinical Impressions Clinical Impression: Anxiety, Heart palpitations Instructions Patient Instructions: DI for Graves Disease Discharge ED Provider: Afshan Santana [facility] General Stated complaint: trouble urinating Time Seen by Provider: 12/16/23 13:13 History of Present Illness Provider Complaint: Patient presents to have urine checked. Feels like she is not urinating enough. She is being worked up by her PCP and has seen cardiology. Tests so far have been normal. But she constantly feels nervous, has dry mouth, no appetite, and like she is smothering. Patient recently started meds for hypertension. Meds were adjusted due to being too low after that. Sugar seems fine when she checks it. Sometimes gets extremely sleepy when just sitting there. Home sleep study pending. Related Data Home Medications Medication Instructions Recorded Confirmed atorvastatin 10 mg tablet 10 mg PO HS Cholesterol 08/13/19 12/16/23 calcipotriene-betamethasone 0.005 topical 10/10/23 11/22/23 %-0.064 % topical ointment chlorhexidine gluconate 0.12 % 15 ml mucous membrane BID 10/10/23 12/16/23 mouthwash fluoride (sodium) 1.1 % dental 1 applic PO BID 10/10/23 11/22/23 paste losartan 50 mg tablet 50 mg PO DAILY 10/10/23 12/16/23 montelukast 10 mg tablet 10 mg PO HS 10/10/23 12/16/23 omeprazole 20 mg capsule,delayed 20 mg PO DAILY PRN GERD 10/10/23 12/16/23 release albuterol sulfate 90 mcg/actuation 2 puff inhalation Q4-6H PRN 10/31/23 12/16/23 aerosol inhaler (Ventolin HFA) wheezing alendronate 70 mg tablet 70 mg PO WEEKLY 10/31/23 12/16/23 Previous Rx's Medication Instructions Recorded buspirone 5 mg tablet 7.5 mg (1.5 x 5 mg) PO BID #60 tabs 11/22/23 diltiazem HCl 120 mg 120 mg PO DAILY #30 caps 11/22/23 capsule,extended release 24 hr hydroxyzine HCl 25 mg tablet 25 mg PO Q8H PRN itching #30 tabs 12/16/23 Allergies Allergy/AdvReac Type Severity Reaction Status Date / Time Penicillins Allergy Verified 12/16/23 13:06 [facility] Disclaimer: The information contained in this section may have been updated after the patient was seen, as this information can be updated by other users. Medical History Dizziness Abnormal electrocardiogram [ECG] [EKG] HLD (hyperlipidemia) GERD (gastroesophageal reflux disease) Anxiety Depression Urinary tract infection Surgical History H/O tubal ligation History of cholecystectomy Social History Smoking Status: Current every day smoker tobacco type: cigarettes packs per day: 1 alcohol intake: never current occupational status: other Travel in the last 8 weeks: None ROS Obtained: Yes All systems reviewed & no additional complaints except as documented Constitutional Constitutional: Reports system reviewed and no additional complaints, except as documented, Reports excessive sweating, Reports fatigue and Reports poor appetite ENT Ears, Nose, Mouth, and Throat: Reports dysphagia Cardiovascular Cardiovascular: Reports dyspnea Respiratory Respiratory: Reports dyspnea Gastrointestinal Gastrointestingal: Reports dysphagia Endocrine Endocrine: Reports excessive sweating and Reports fatigue Physical Exam General General appearance: alert Neck Neck exam: Present trachea midline Chest Chest inspection: Present normal inspection and symmetric chest wall rise Respiratory Respiratory exam: Present normal lung sounds bilaterally; Absent respiratory distress, wheezes, stridor, accessory muscle use or prolonged expiratory phase Cardiovascular Cardiovascular exam: Present regular rate and normal rhythm Extremities Exam Extremities exam: Absent edema Neurological Exam Neurological exam: Present alert, oriented X3 and CN II-XII intact Skin Skin exam: Present warm and dry; Absent cyanosis, diaphoresis or pallor Medical Decision Making Kenny Inquiry Pt receiving controlled substance: No
[2023-12-16 12:45] VITALS: BP 118/85; PULSE 90; RESP 18; TEMP 36.9; O2SAT 99; BMI 17.9
[2023-12-16 13:23] LABS: Apearance,Urine Clear (Clear); Color,Urine Yellow (Yellow)
[2023-12-16 13:24] LABS: Bilirubin,Urine Negative (Negative); Blood, Urine Negative (Negative); Glucose,Urine (UA) Negative (Negative); Ketones,Urine Negative (Negative); Protein,Urine Negative (Negative); Specific Gravity, Urine 1.015 (1.005-1.030); UTC Leukocyte Esterase,Urine Negative (Negative); UTC Nitrate,Urine Negative (Negative); Urobilinogen,Urine 0.2 EU/dl (0.2)
--- NOTE | 2023-12-16 13:43 | PC.NURSE ---
Sent blood work to lab via tube system
[2023-12-16 13:57] VITALS: BP 118/85; PULSE 90; RESP 18; TEMP 36.9; O2SAT 99
[2023-12-16 15:19] LABS: Triiodothryronine (T3) Uptake 36 % (23.5-40.5)
[2023-12-16 15:21] LABS: Free Thyroxine Index 3.2 ug/dL (5.93-13.13); T4 (Thyroxine) 8.9 ug/dl (5.53-11.0)
[2023-12-16 15:33] LABS: Thyroid Stimulating Hormone 0.99 uIU/mL (0.465-4.68)
[2023-12-17 14:19] LABS: Thyroid Peroxidase Antibodies <9 IU/mL (0-34)
[2023-12-20 16:34] LABS: Thyroid Stimulating Immunoglob <0.10 IU/L (0.00-0.55)
== END 2023-12-16 13:57 | disposition home or self-care (01) ==
PROVIDERS: Emergency Provider Physician Assistant; PCP Family Medicine
DX: R00.2 Palpitations (principal); F41.9 Anxiety disorder, unspecified; R53.83 Other fatigue; K21.9 Gastro-esophageal reflux disease without esophagitis; E78.5 Hyperlipidemia, unspecified; F32.A Depression, unspecified; F17.210 Nicotine dependence, cigarettes, uncomplicated
CPT/HCPCS: 81003; 84436; 84443; 84445; 84479; 86376; 99212; 99214; G0463

== ENCOUNTER 2023-12-21 14:23 | Outpatient (CLI) | payer OTHER, SELFPAY ==
[2023-12-21 15:39] LABS: Calcium 9.7 mg/dl (8.4-10.2)
[2023-12-21 15:51] LABS: Intact Parathyroid Hormone 54.4 pg/mL (7.5-53.5)
[2023-12-25 14:20] LABS: Antinuclear Antibodies, IFA Negative (.)
[2023-12-30 10:29] LABS: Dopamine, Plasma < 30 pg/mL (0-48); Epinephrine, Plasma 33 pg/mL (0-62); Norepinephrine, Plasma 489 pg/mL (0-874)
== END 2023-12-21 23:59 | disposition home or self-care (01) ==
LOC: LAB 14:24
PROVIDERS: PCP Family Medicine; Visit Provider Internal Medicine
DX: R42 Dizziness and giddiness (principal); I47.29 Other ventricular tachycardia; R07.9 Chest pain, unspecified; R00.2 Palpitations; R40.0 Somnolence; R94.31 Abnormal electrocardiogram [ECG] [EKG]; R53.83 Other fatigue; E78.5 Hyperlipidemia, unspecified; I10 Essential (primary) hypertension; Z00.01 Encounter for general adult medical examination with abnormal findings
CPT/HCPCS: 36415; 82310; 82384; 82533; 83520; 83970; 86038

== ENCOUNTER 2023-12-25 14:25 | Outpatient (CLI) | payer OTHER, SELFPAY ==
[2023-12-28 03:53] LABS: Sodium, Urine 55 mmol/L (Not Estab.); Sodium, Urine 74 mmol/24 hr (39-258)
== END 2023-12-25 23:59 | disposition home or self-care (01) ==
LOC: LAB.DROPOF 14:27
PROVIDERS: PCP Family Medicine; Visit Provider Internal Medicine
DX: R42 Dizziness and giddiness (principal); R40.0 Somnolence; I47.29 Other ventricular tachycardia; R00.2 Palpitations; R94.31 Abnormal electrocardiogram [ECG] [EKG]; R53.83 Other fatigue; E78.5 Hyperlipidemia, unspecified; I10 Essential (primary) hypertension; R07.9 Chest pain, unspecified
CPT/HCPCS: 84300

== ENCOUNTER 2024-01-05 13:26 | Emergency (ER) | payer OTHER, SELFPAY ==
[2024-01-05 13:30] VITALS: BP 138/91; PULSE 97; RESP 21; TEMP 36.9; O2SAT 96; BMI 17.4
--- NOTE | 2024-01-05 14:11 | ED_ITS ---
Discharge Plan Disposition Patient Disposition: Home, Self-Care Condition: Good Prescriptions Prescriptions: New methylprednisolone 4 mg Tablets,Dose Pack 4 mg PO DIRECTED 6 Days Qty: 21 0RF Rx Instructions: Take 1 pack as directed for 6 days benzonatate 100 mg capsule 100 mg PO TIDP PRN (Reason: Cough) Qty: 30 0RF cefdinir 300 mg capsule 300 mg PO BID Qty: 20 0RF No Action losartan 50 mg tablet 50 mg PO DAILY Patient Comments: TAKE 1 TABLET BY MOUTH EVERY DAY atorvastatin 10 mg tablet 10 mg PO HS Patient Comments: TAKE 1 TABLET BT MOUTH ONCE A DAY alendronate 70 mg tablet 70 mg PO DAILY Patient Comments: TAKE 1 TABLET BY MOUTH WEEKLY FOR 84 DAYS omeprazole 20 mg capsule,delayed release(DR/EC) 20 mg PO DAILY Patient Comments: TAKE 1 CAPSULE BY MOUTH EVERY DAY montelukast 10 mg tablet 10 mg PO DAILY Patient Comments: TAKE 1 TABLET BY MOUTH EVERYDAY AT BEDTIME diltiazem HCl 60 mg capsule,extended release 12 hr 60 mg PO DAILY Patient Comments: TAKE 1 CAPSULE BY MOUTH TWICE A DAY calcipotriene-betamethasone 0.005-0.064 % ointment 1 applic TOPICAL DAILY Patient Comments: APPLY TO AFFECTED AREA EVERY DAY Referrals Follow up/Referrals: Blaise Lozano MD [Primary Care Provider] - See instructions Activity Restrictions/Add. Instructions Additional Instructions/Restrictions: Drink plenty of fluids. Take tylenol or ibuprofen for pain or fever. Take the medications as directed. Follow up with your regular doctor. GO TO THE ER FOR ANY WORSENING SYMPTOMS Clinical Impressions Clinical Impression: Sinusitis, Bronchitis, Viral syndrome Instructions Patient Instructions: Sinusitis, DI for Sinusitis Discharge ED Provider: Memo Shay [facility] General Stated complaint: congestion, head tightness Mode of Arrival: Ambulatory Source of Information: Patient Time Seen by Provider: 01/05/24 14:11 Description of Symptoms (Recalled from Triage Doc. by RN): PATIENT C/O CHEST CONGESTION, EAR ACHE, AND NASAL CONGESTION SINCE YESTERDAY HEENT Symptoms (Recalled from RN notes): Yes Resp Symptoms (Recalled from RN notes): Yes Skin Symptoms (Recalled from RN notes): No MS Symptoms (Recalled from RN notes): No Functional Status (Recalled from RN notes): WNL History of Present Illness Provider Complaint: She states that for the past 3 days she has had fever, chills, body aches, sinus congestion and chest congestion. She denies chest pain and shortness of breath. Related Data Home Medications Medication Instructions Recorded Confirmed alendronate 70 mg tablet 70 mg PO DAILY 01/05/24 01/05/24 atorvastatin 10 mg tablet 10 mg PO HS 01/05/24 01/05/24 calcipotriene-betamethasone 0.005 1 applic topical DAILY 01/05/24 01/05/24 %-0.064 % topical ointment diltiazem HCl 60 mg 60 mg PO DAILY 01/05/24 01/05/24 capsule,extended release 12 hr losartan 50 mg tablet 50 mg PO DAILY 01/05/24 01/05/24 montelukast 10 mg tablet 10 mg PO DAILY 01/05/24 01/05/24 omeprazole 20 mg capsule,delayed 20 mg PO DAILY 01/05/24 01/05/24 release Previous Rx's Medication Instructions Recorded benzonatate 100 mg capsule 100 mg PO TIDP PRN Cough #30 caps 01/05/24 cefdinir 300 mg capsule 300 mg PO BID #20 caps 01/05/24 methylprednisolone 4 mg tablets in 4 mg PO DIRECTED 6 days #21 tabs 01/05/24 a dose pack Allergies Allergy/AdvReac Type Severity Reaction Status Date / Time Penicillins Allergy Verified 12/21/23 13:32 Worker's Comp Is this a Worker's Comp case?: No [facility] Disclaimer: The information contained in this section may have been updated after the patient was seen, as this information can be updated by other users. Medical History (Updated 01/05/24 @ 14:39 by Memo Shay APRN) Hypertension Dizziness Abnormal electrocardiogram [ECG] [EKG] HLD (hyperlipidemia) GERD (gastroesophageal reflux disease) Anxiety Depression Urinary tract infection Surgical History H/O tubal ligation History of cholecystectomy Social History Smoking Status: Current every day smoker tobacco type: cigarettes packs per day: 1 alcohol intake: never current occupational status: other Travel in the last 8 weeks: None ROS Obtained: Yes All systems reviewed & no additional complaints except as documented Constitutional Constitutional: Reports chills and Reports fever(s) Eyes Eyes: Denies eye discharge ENT Ears, Nose, Mouth, and Throat: Reports as per HPI Cardiovascular Cardiovascular: Denies chest pain Respiratory Respiratory: Denies shortness of breath, Reports chest congestion, Reports cough, Denies stridor and Denies wheezing Gastrointestinal Gastrointestingal: Reports nausea; Denies abdominal pain, constipation, cramping, diarrhea or vomiting Musculoskeletal Musculoskeletal: Denies arthralgias Integumentary/Breasts Skin/Breast: Denies rash Neurologic Neurologic: Denies paresthesias Allergic/Immunologic Allergic/Immunologic: Denies wheezing Physical Exam General General appearance: alert and in no apparent distress Head Head exam: atraumatic, normocephalic and normal inspection Eye Eye exam: Present normal appearance; Absent PERRL or EOMI ENT ENT exam: Present mucous membranes moist and normal external ear exam Expanded ENT Exam TM/Canal exam: Bilateral TM: erythema, bulging and effusion Nose exam: Absent sinus tenderness Nasal speculum exam: Bilateral: normal Mouth exam: Present normal external inspection and other; Absent drooling Teeth exam: Present normal inspection Throat exam: Present tonsillar erythema and tonsillomegaly Neck Neck exam: Present normal inspection, full ROM and trachea midline; Absent tenderness, meningismus or lymphadenopathy Chest Chest inspection: Present normal inspection and symmetric chest wall rise; Absent tenderness Respiratory Respiratory exam: Present normal lung sounds bilaterally; Absent respiratory distress, wheezes or stridor Cardiovascular Cardiovascular exam: Present regular rate, normal rhythm and normal heart sounds; Absent tachycardia or irregular rhythm Abdominal Exam Abdominal exam: Present soft and normal bowel sounds; Absent distention, te nderness, guarding, rebound or rigidity Extremities Exam Extremities exam: Present normal inspection and normal capillary refill; Absent tenderness, joint swelling or calf tenderness Back Exam Back exam: Present normal inspection and full ROM; Absent tenderness, CVA tenderness (R) or CVA tenderness (L) Neurological Exam Neurological exam: Present alert, oriented X3, CN II-XII intact, normal gait and reflexes normal; Absent motor sensory deficit Psychiatric Psychiatric exam: Present normal affect and normal mood Skin Skin exam: Present warm, dry, intact and normal color Lymphatic Lymphatic Findings: no adenopathy Medical Decision Making Medical Records Medical records reviewed: No I reviewed the patient's medical records. Kenny Inquiry Pt receiving controlled substance: No Vital Signs: 01/05/24 13:30 Temperature 98.5 F Temperature Source Oral Pulse Rate [Left Brachial] 97 H Respiratory Rate 21 Blood Pressure [Left Arm] 138/91 H Blood Pressure Mean [Left Arm] 106 Blood Pressure Source [Left Arm] Automatic Cuff Blood Pressure Position [Left Arm] Sitting 02 Sat by Pulse Oximetry 96 Oxygen Delivery Method Room Air
[2024-01-05 14:40] VITALS: BP 138/91; PULSE 97; RESP 21; TEMP 36.9; O2SAT 96
[2024-01-05 14:51] LABS: Adenovirus,PCR Not Detected (NotDetected); Bordetella Pertussis Not Detected (NotDetected); Chlamydophila Pneumoniae, PCR Not Detected (NotDetected); Coronavirus 19, PCR Not Detected (NotDetected); Coronavirus 229E Not Detected (NotDetected); Coronavirus NL63 Not Detected (NotDetected); Coronavirus OC43 Not Detected (NotDetected); Coronovirus HKU1,PCR Not Detected (NotDetected); Human Metapneumovirus Not Detected (NotDetected); Influenza A, PCR Not Detected (NotDetected); Influenza AH1, 2009 Not Detected (NotDetected); Influenza AH1, PCR Not Detected (NotDetected); Influenza AH3,PCR Not Detected (NotDetected); Influenza B, PCR Not Detected (NotDetected); Mycoplasma Pneumoniae, PCR Not Detected (NotDetected); Parainfluenza 1, PCR Not Detected (NotDetected); Parainfluenza 2, PCR Not Detected (NotDetected); Parainfluenza 3, PCR Not Detected (NotDetected); Parainfluenza 4, PCR Not Detected (NotDetected); Respiratory Syncytial Virus Not Detected (NotDetected)
[2024-01-05 19:26] LABS: Rhinovirus/Enterovirus Detected (NotDetected)
== END 2024-01-05 14:43 | disposition home or self-care (01) ==
PROVIDERS: Emergency Provider Nurse Practitioner Family; PCP Family Medicine
DX: J20.9 Acute bronchitis, unspecified (principal); J01.90 Acute sinusitis, unspecified; R50.9 Fever, unspecified; B34.9 Viral infection, unspecified
CPT/HCPCS: 87581; 87632; 87635; 87798; 99212; 99214; G0463

== ENCOUNTER → 2024-01-11 08:35 | Outpatient (CLI) | payer OTHER, SELFPAY | LOC: SL 08:36 | PROVIDERS: PCP Family Medicine; Visit Provider Internal Medicine | DX: R53.83 Other fatigue (principal); R40.0 Somnolence; I10 Essential (primary) hypertension; E78.5 Hyperlipidemia, unspecified; R00.2 Palpitations; R42 Dizziness and giddiness; I47.29 Other ventricular tachycardia | CPT/HCPCS: G0399 ==

== ENCOUNTER 2024-02-23 15:18 | Outpatient (CLI) | payer OTHER, SELFPAY ==
[2024-02-23 15:34] LABS: Basophils # 0.1 K/mm3 (0-0.2); Basophils % 0.8 % (0.1-2.0); Eosinophils # 0.1 K/mm3 (0.0-0.4); Eosinophils % 1.3 % (0.1-12.0); Hematocrit 40.9 % (37.0-47.0); Hemoglobin 14.8 g/dL (12.2-16.2); Lymphocytes # 3.5 K/mm3 (0.7-4.5); Lymphocytes % 40.8 % (10-50); Mean Corpuscular HGB Conc 36.2 g/dL (31.8-35.4); Mean Corpuscular Hemoglobin 35.9 pg (27.0-31.2); Mean Platelet Volume 7.1 fl (7.4-10.4); Monocytes # 0.4 K/mm3 (0.1-1.0); Monocytes % 5.2 % (1.7-9.3); Neutrophils # 4.4 K/mm3 (1.8-7.8); Neutrophils % 51.8 % (37.0-80.0); Platelet Count 304 K/mm3 (142-424); Red Blood Count 4.13 M/mm3 (4.20-5.40); Red Cell Distribution Width 14.5 % (11.5-17.5); White Blood Count 8.5 K/mm3 (4.8-10.8)
[2024-02-23 16:05] LABS: Anion Gap 6.4 mEq/L (5-15); Blood Urea Nitrogen 16 mg/dl (7-17); Calcium 9.7 mg/dl (8.4-10.2); Carbon Dioxide 30 mmol/L (22.0-30.0); Chloride 107 mmol/L (98-107); Estimated Glomerular Filt Rate 102 ml/min (>60); GFR (African American) 124 ML/MIN (>60); Glucose 84 mg/dl (74-100); Potassium 4.4 mmoL/L (3.5-5.1); Sodium 139 mmol/L (136-145)
== END 2024-02-23 23:59 | disposition home or self-care (01) ==
LOC: LAB 15:20
PROVIDERS: PCP Family Medicine; Visit Provider Internal Medicine
DX: I10 Essential (primary) hypertension (principal); R00.2 Palpitations; Z72.0 Tobacco use
CPT/HCPCS: 36415; 80048; 85025

== ENCOUNTER 2025-04-30 13:26 | Outpatient (CLI) | payer OTHER, SELFPAY ==
[2025-04-30 13:54] LABS: Hematocrit 38.3 % (37.0-47.0); Hemoglobin 13.3 g/dL (12.2-16.2); Immature Granulocytes % 0.2 %; Mean Corpuscular HGB Conc 34.7 g/dL (31.8-35.4); Mean Corpuscular Hemoglobin 31.8 pg (27.0-31.2); Mean Corpuscular Volume 91.6 fl (81-99); Nucleated Red Blood Cells % 0 %; Platelet Count 308 K/mm3 (142-424); Red Blood Count 4.18 M/mm3 (4.20-5.40); Red Cell Distribution Width-SD 44.4 fL; White Blood Count 6.2 K/mm3 (4.8-10.8)
[2025-04-30 14:15] LABS: Hemoglobin A1C 5.8 % (4.0-6.0)
[2025-04-30 14:22] LABS: Alanine Aminotransferase 17 U/L (12-78); Albumin Level 3.8 g/dl (3.5-5.0); Alkaline Phosphatase 99 U/L (38-126); Anion Gap 11.4 mEq/L (5-15); Aspartate Amino Transferase 14 U/L (14-36); Bilirubin,Direct 0.2 mg/dl (0.0-0.4); Bilirubin,Indirect 0.3 mg/dL (0.0-0.9); Bilirubin,Total 0.5 mg/dl (0.2-1.3); Bilirubin,Unconjugated 0.3 mg/dL (0.0-1.1); Blood Urea Nitrogen 12 mg/dl (7-17); Calcium 9.1 mg/dl (8.4-10.2); Carbon Dioxide 26 mmol/L (22.0-30.0); Chloride 103 mmol/L (98-107); Cholesterol 183 mg/dl (140-200); Creatinine,Serum 0.60 mg/dl (0.52-1.04); Estimated Glomerular Filt Rate 102 ml/min (>60); GFR (African American) 123 ML/MIN (>60); Glucose 85 mg/dl (74-100); HDL Cholesterol 63 mg/dl (40-60); Magnesium 1.8 mg/dl (1.6-2.3); Potassium 3.4 mmoL/L (3.5-5.1); Sodium 137 mmol/L (136-145); Total Protein,Serum 6.4 g/dl (6.3-8.2); Triglycerides 73 mg/dl (30-150)
[2025-04-30 14:41] LABS: Free T4 (Free Thyroxine) 1.24 ng/dl (0.78-2.19)
[2025-04-30 14:54] LABS: Thyroid Stimulating Hormone 1.13 uIU/mL (0.465-4.68)
== END 2025-04-30 23:59 | disposition home or self-care (01) ==
LOC: LAB 13:26
PROVIDERS: PCP Nurse Practitioner Family; Visit Provider Internal Medicine
DX: E78.5 Hyperlipidemia, unspecified (principal); I10 Essential (primary) hypertension; Z13.1 Encounter for screening for diabetes mellitus
CPT/HCPCS: 36415; 80048; 80061; 80076; 83036; 83735; 84439; 84443; 85025

== ENCOUNTER 2025-05-08 11:47 | Outpatient (CLI) | payer OTHER, SELFPAY ==
[2025-05-08 13:21] LABS: Anion Gap 12.1 mEq/L (5-15); Blood Urea Nitrogen 13 mg/dl (7-17); Calcium 9.0 mg/dl (8.4-10.2); Carbon Dioxide 26 mmol/L (22.0-30.0); Chloride 104 mmol/L (98-107); Creatinine,Serum 0.70 mg/dl (0.52-1.04); Estimated Glomerular Filt Rate 85 ml/min (>60); GFR (African American) 103 ML/MIN (>60); Glucose 64 mg/dl (74-100); Potassium 4.1 mmoL/L (3.5-5.1); Sodium 138 mmol/L (136-145)
== END 2025-05-08 23:59 | disposition home or self-care (01) ==
LOC: LAB 11:48
PROVIDERS: PCP Nurse Practitioner Family; Visit Provider Internal Medicine
DX: E78.5 Hyperlipidemia, unspecified (principal); I10 Essential (primary) hypertension
CPT/HCPCS: 36415; 80048